=== PATIENT | male | born 1930 | race Caucasian/White ===

== ENCOUNTER 2016-08-06 04:49 | Emergency (ER) | payer MEDICARE ==
[2016-08-06] MEDS ORDERED: methylPREDNISolone SOD SUCC* 125 MG 2 ML VIAL IV ONE (05:11)
[2016-08-06] MEDS ORDERED: Albuterol/Ipratropium NEB.SOL* Albuterol 2.5 MG/Ipratropium 0.5 MG 3 ML INH ONE ×2 (05:17→06:13)
[2016-08-06] MEDS ORDERED: Albuterol/Ipratropium NEB.SOL* Albuterol 2.5 MG/Ipratropium 0.5 MG 3 ML ONE (05:18)
[2016-08-06 05:31] LABS: Hematocrit 38 % (42-52); Hemoglobin 12.6 g/dl (14.0-18.0); Mean Corpuscular HGB Conc 33 g/dl (31-36); Mean Corpuscular Hemoglobin 30 pg (27-31); Mean Corpuscular Volume 90 fL (80-94); Mean Platelet Volume 8 um3 (7.4-10.4); Red Blood Count 4.25 10^6/ul (4.0-5.4); Red Cell Distribution Width 13 % (10.5-15); White Blood Count 5.9 10^3/ul (3.5-10.8)
[2016-08-06 05:44] LABS: Albumin 3.9 g/dL (3.2-5.2); BUN/Creatinine Ratio 12.9 (8-20); Calcium 9.1 mg/dL (8.6-10.3); EGFR African American 66.5 (>60); EGFR Non-African American 51.7 (>60); Globulin 2.7 g/dL (2-4); Potassium 4.1 mmol/L (3.5-5.0); Total Bilirubin 0.6 mg/dL (0.2-1.0); Total Protein 6.6 g/dL (6.4-8.9)
[2016-08-06] MEDS ORDERED: Albuterol 2.5 MG/3 ML NEB.SOL* (0.083%) INH SCH (06:00)
[2016-08-06 06:51] VITALS: BP 91/39
--- NOTE | 2016-08-06 07:51 | RAD ---
INDICATION: Shortness of breath. COMPARISON: Similar chest x-ray dated August 17, 2015 TECHNIQUE: Single AP portable view of the chest was obtained. FINDINGS: Image quality is compromised due to the relative inferiority of a portable chest x-ray. Again seen is a left upper chest cardiac pacemaker with 2 leads overlying the heart. The heart and mediastinum exhibit normal size and contour. There is coarse calcification overlying the arch of the aorta. The lungs are grossly clear. There is no evidence of a large pleural effusion. Visualized bones are normal for the patient's age. IMPRESSION: No radiographic evidence for acute cardiopulmonary abnormality on this portable chest x-ray.
--- NOTE | 2016-08-25 20:13 | ED ---
Minesh Goldberg Matthew, scribed for Ulices Khan MD on 08/06/16 at 0508 . Shortness of Breath - HPI Summary HPI Summary: An 86 y/o male presents to the ED with SOB since yesterday evening. Associated symptoms include dry cough, rhinorrhea, and throat pain w/ coughing. The patient denies hemoptysis, fever, diaphoresis, and chills. The patient is not on home oxygen. He did on nebulizer treatment last night, which did not alleviate his symptoms. No Hx of smoking. The patient's niece is currently ill. - History of Current Complaint Chief Complaint: EDShortnessOfBreath Time Seen by Provider: 08/06/16 04:59 Hx Obtained From: Patient Onset/Duration: Gradual Onset, Lasting Hours, Still Present Timing: Constant Current Severity: Moderate Dyspnea At: Rest Associated Signs & Symptoms: Cough (Nonproductive) - Allergy/Home Medications Allergies/Adverse Reactions: Allergies Allergy/AdvReac Type Severity Reaction Status Date / Time No Known Allergies Allergy Verified 08/17/15 18:41 Home Medications: Home Medications Ferrous Sulfate TAB* 325 mg PO DAILY 08/06/16 [History Confirmed 08/06/16] Lactobacillus Reuteri [Pedia-Lax Probiotic Yums] 2 chw PO TID PRN 08/06/16 [ History Confirmed 08/06/16] Mometasone 220 MCG MDI * [Asmanex 220 MCG MDI *] 2 puff INH BID 08/06/16 [ History Confirmed 08/06/16] Nitroglycerin TAB 0.4 MG* 0.4 mg SL Q5M PRN 08/06/16 [History Confirmed 08/06/16 ] Nystatin SUSPENSION* [Nystatin*] 100,000 unit MT TID 08/06/16 [History Confirmed 08/06/16] Polyethylene Glycol 3350 BTL* [Miralax] 238 gm PO ONCE 08/06/16 [History Confirmed 08/06/16] PMH/Surg Hx/FS Hx/Imm Hx Endocrine/Hematology History: Denies: Hx Diabetes Cardiovascular History: Reports: Hx Angina, Hx Coronary Artery Disease, Hx Hypercholesterolemia, Hx Hypertension, Hx Myocardial Infarction, Hx Pacemaker/ ICD - 11/2009 A-PACED, Hx Syncope - [place] 2004, Other Cardiovascular Problems/ Disorders - pacemaker Respiratory History: Reports: 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, Other Respiratory Problems/Disorders - EMPHYZEMA Denies: Hx Asthma GI History: Reports: Hx Gastroesophageal Reflux Disease, Hx Irritable Bowel, Other GI Disorders - appendix surgery x 2 Musculoskeletal History: Reports: Hx Arthritis, Hx Back Problems - comes and goes, Other Musculoskeletal History - L arm tendonitis requiring surgeries, bilateral rotator cuff surgeries Sensory History: Reports: Hx Contacts or Glasses - READING Opthamlomology History: Reports: Hx Contacts or Glasses - READING Psychiatric History: Reports: Hx Anxiety - Surgical History Surgery Procedure, Year, and Place: pacemaker 11/2009. forearm tendon repairs bilateral. appy, cholecystectomy. cataract surgery 11/2010 Hx Anesthesia Reactions: No - Immunization History Date of Tetanus Vaccine: Up to date Date of Influenza Vaccine: Fall 2012 Infectious Disease History: No Infectious Disease History: Denies: Traveled Outside the [place] in Last 30 Days - Family History Known Family History: Positive: Hypertension - Social History Alcohol Use: Rare Hx Substance Use: No Substance Use Type: Reports: None Hx Tobacco Use: No Smoking Status (MU): Never Smoked Tobacco Review of Systems Constitutional: Negative Negative: Fever, Chills Eyes: Negative Negative: Erythema ENT: Other - throat pain w/ cough Positive: Nasal Discharge. Negative: Sore Throat Cardiovascular: Negative Negative: Chest Pain Positive: Shortness Of Breath, Cough - dry Gastrointestinal: Negative Negative: Abdominal Pain, Vomiting, Diarrhea, Nausea Genitourinary: Negative Negative: dysuria, hematuria Musculoskeletal: Negative Negative: Myalgia, Edema - pedal Skin: Negative Negative: Rash Neurological: Negative Psychological: Normal All Other Systems Reviewed And Are Negative: Yes Physical Exam Triage Information Reviewed: Yes Vital Signs On Initial Exam: Initial Vitals Temp Pulse Resp BP Pulse Ox 99.4 F 72 24 145/49 96 08/06/16 04:56 08/06/16 04:56 08/06/16 04:56 08/06/16 04:56 08/06/16 04:56 Vital Signs Reviewed: Yes Appearance: Positive: No Pain Distress, Well-Nourished Skin: Positive: Warm, Dry Head/Face: Positive: Other - Normocephalic; Atraumatic Eyes: Positive: Conjunctiva Clear Dental: Negative: Cervical Lymphadenopathy Neck: Positive: Supple, No Lymphadenopathy, Other: - Full ROM; No JVD Respiratory/Lung Sounds: Positive: Decreased Breath Sounds - severely, Other - The patient was coughing incessantly during the exam.. Negative: Rales, Rhonchi , Stridor, Tracheal Deviation, Wheezes Cardiovascular: Positive: RRR, Other - Heart sounds normal; Intact distal pulses ; The pedal pulses are 2+ and symmetric. Radial pulses are 2+ and symmetric. Negative: Murmur Abdomen Description: Positive: Nontender, Soft, Other: - No Rebound. Negative: Distended, Guarding Musculoskeletal: Negative: Edema Left, Edema Right Neurological: Positive: Alert, Oriented to Person Place, Time Psychiatric: Positive: Affect/Mood Appropriate Diagnostics - Vital Signs Vital Signs Temp Pulse Resp BP Pulse Ox 08/06/16 04:56 99.4 F 72 24 145/49 96 - Laboratory Result Diagrams: 08/06/16 05:15 08/06/16 05:15 Lab Statement: Any lab studies that have been ordered have been reviewed, and results considered in the medical decision making process. - Radiology CXR Xray Interpretation: No Acute Changes - NO ACUTE DISEASE Radiology Interpretation Completed By: ED Physician - EKG 05:53 Cardiac Rate: NL - 60 bpm EKG Interpretation: Paced rhythm no change; NO STEMI Course/Dx - Course Assessment/Plan: An 86 y/o male presents to the ED with SOB since yesterday evening. Labs were reviewed. CXR shows no acute disease. EKG shows paced rhythm at 60 bpm. In the ED course, the patient was given 2 DuoNeb treatments, solumedrol, and albuterol. The patient improved while in the ED and sated well while ambulating. The patient will be discharged home and follow-up with his PCP. - Diagnoses Provider Diagnoses: COPD exacerbation Discharge - Discharge Plan Condition: Stable Disposition: HOME Prescriptions: Albuterol 2.5MG/3ML (0.083%)* [Ventolin 2.5 MG/3 ML NEB.LIZET*] 2.5 mg INH Q4H # 30 neb.lizet predniSONE TAB* [Deltasone TAB*] 40 mg PO DAILY #8 tab Patient Education Materials: COPD (Chronic Obstructive Pulmonary Disease) (ED) Referrals: [facility] [Outside] Additional Instructions: Please follow-up with your primary care physician in 2 days. Return to the emergency department for changing or worsening symptoms The documentation as recorded by the Minesh covington Matthew accurately reflects the service I personally performed and the decisions made by me, Ulices Khan MD.
== END 2016-08-06 06:58 | disposition home or self-care (01) ==
LOC: ED 04:49
DX: J44.1 Chronic obstructive pulmonary disease with (acute) exacerbation (principal); R06.02 Shortness of breath; R05 Cough; J02.9 Acute pharyngitis, unspecified
CPT/HCPCS: 36415; 71010; 80053; 83605; 85025; 93005; 94640; 94760; 96374; 99282; A9270-GY; J2930

== ENCOUNTER 2017-11-07 02:41 | Emergency (ER) | payer MEDICARE ==
[2017-11-07] MEDS ORDERED: Aspirin 81 mg CHEW TAB* 81 MG TAB.CHEW ONE (03:09)
[2017-11-07] MEDS ORDERED: Ketorolac INJ* 30 MG/ML 1 ML VIAL ONE (03:09)
[2017-11-07 03:50] LABS: INR 0.89 (0.77-1.02)
[2017-11-07 03:52] LABS: ABS Basophils 0 10^3/ul (0-0.2); ABS Eosinophils 0.3 10^3/ul (0-0.6); ABS Lymphocytes 1.5 10^3/ul (1.0-4.8); ABS Monocytes 0.6 10^3/ul (0-0.8); ABS Neutrophils 2.7 10^3/ul (1.5-7.7); ABS Nucleated RBC 0 10^3/ul; Eosinophil % 5.1 % (0-6); Hematocrit 33 % (42-52); Hemoglobin 10.9 g/dl (14.0-18.0); Lymphocyte % 30.6 % (25-47); Mean Corpuscular HGB Conc 33 g/dl (31-36); Mean Corpuscular Hemoglobin 30 pg (27-31); Mean Corpuscular Volume 91 fL (80-94); Mean Platelet Volume 7.9 um3 (7.4-10.4); Nucleated Red Blood Cells % 0; Platelet Count 139 10^3/ul (150-450); Red Blood Count 3.63 10^6/ul (4.0-5.4); Red Cell Distribution Width 14 % (10.5-15); White Blood Count 5.1 10^3/ul (3.5-10.8)
[2017-11-07 04:03] LABS: EGFR Non-African American 56.5 (>60)
[2017-11-07 05:06] VITALS: BP 168/78
--- NOTE | 2017-11-07 05:14 | ED ---
Ronan Goldberg Nilda, scribed for Dawson Zapata MD on 11/07/17 at 0422 . HPI Chest Pain - HPI Summary HPI Summary: This patient is an 87 year old M presenting to [facility] accompanied by family with a chief complaint of constant acute severe L-sided CP that woke him from sleep an hour ago. Pt rates pain 8/10 in severity. Symptoms aggravated by palpation, movement, and deep breaths. Symptoms alleviated by nothing including NTG taken NURSE CLINICAL. Patient reports he fell a couple days ago, though son states pt was caught during that fall and pt never hit the ground. PMHx includes CO years ago. Pt has pacemaker. - History of Current Complaint Chief Complaint: EDChestPainROMI Time Seen by Provider: 11/07/17 02:44 Hx Obtained From: Patient, Family/Disability Advocate - son Onset/Duration: Started Hours Ago, Still Present Timing: Constant Initial Severity: Severe Current Severity: Severe Pain Intensity: 8 Pain Scale Used: 0-10 Numeric Chest Pain Location: Left Anterior Chest Pain Radiates: No Aggravating Factor(s): Movement, Deep Breaths, Other: - palpation Alleviating Factor(s): Nothing Associated Signs and Symptoms: Positive: Other: - fall (a few days ago but was caught) - Additional Pertinent History Primary Care Physician: [id number] - Allergy/Home Medications Allergies/Adverse Reactions: Allergies Allergy/AdvReac Type Severity Reaction Status Date / Time No Known Allergies Allergy Verified 08/17/15 18:41 PMH/Surg Hx/FS Hx/Imm Hx Endocrine/Hematology History: Denies: Hx Diabetes Cardiovascular History: Reports: Hx Angina, Hx Coronary Artery Disease, Hx Hypercholesterolemia, Hx Hypertension, Hx Myocardial Infarction, Hx Pacemaker/ ICD, Hx Syncope - [place] 2004, Other Cardiovascular Problems/Disorders - pacemaker Respiratory History: Reports: Hx Asthma, Hx Chronic Obstructive Pulmonary Disease (COPD), Other Respiratory Problems/Disorders - EMPHYZEMA GI History: Reports: Hx Gastroesophageal Reflux Disease, Hx Irritable Bowel, Other GI Disorders - appendix surgery x 2 Musculoskeletal History: Reports: Hx Arthritis, Hx Back Problems - comes and goes, Other Musculoskeletal History - L arm tendonitis requiring surgeries, bilateral rotator cuff surgeries Sensory History: Reports: Hx Contacts or Glasses - READING Opthamlomology History: Reports: Hx Contacts or Glasses - READING Psychiatric History: Reports: Hx Anxiety - Surgical History Surgery Procedure, Year, and Place: pacemaker 11/2009. forearm tendon repairs bilateral. appy, cholecystectomy. cataract surgery 11/2010 Hx Anesthesia Reactions: No - Immunization History Date of Tetanus Vaccine: Up to date Date of Influenza Vaccine: Fall 2012 Infectious Disease History: No Infectious Disease History: Denies: Traveled Outside the [place] in Last 30 Days - Family History Known Family History: Positive: Hypertension - Social History Occupation: Retired Lives: With Family Alcohol Use: Rare Hx Substance Use: No Substance Use Type: Reports: None Hx Tobacco Use: No Smoking Status (MU): Never Smoked Tobacco Review of Systems Positive: Other - fall a couple days ago but was caught. Negative: Fever Positive: Chest Pain All Other Systems Reviewed And Are Negative: Yes Physical Exam - Summary Physical Exam Summary: Appearance: Well appearing, no pain distress Skin: warm, dry, reflects adequate perfusion. No rash. Abrasion on head. Head/face: normal Eyes: EOMI, LENORE ENT: normal Neck: supple, non-tender Respiratory: Diminished breath sounds, No rales or rhonchi. Cardiovascular: RRR, pulses symmetrical Chest: Pacemaker in chest. Tender in chest, Area ecchymosis under left breast with tenderness in the 10-11 rib area. Abdomen: non-tender, soft Bowel Sounds: present Musculoskeletal: strength/ROM intact, Kyphosis of his back. Neuro: normal, sensory motor intact, A&Ox3 Triage Information Reviewed: Yes Vital Signs On Initial Exam: Initial Vitals Pulse Resp BP Pulse Ox 60 19 165/74 98 11/07/17 02:02 11/07/17 02:02 11/07/17 02:02 11/07/17 02:02 Vital Signs Reviewed: Yes Diagnostics - Vital Signs Vital Signs Temp Pulse Resp BP Pulse Ox 11/07/17 04:02 60 16 161/69 96 11/07/17 04:00 60 16 96 11/07/17 03:32 60 14 153/73 97 11/07/17 03:00 60 26 97 11/07/17 02:58 60 19 97 11/07/17 02:42 97.9 F 60 24 161/62 99 11/07/17 02:02 60 19 165/74 98 - Laboratory Lab Results: Lab Results 11/07/17 11/07/17 11/07/17 Range/Units 03:05 03:05 03:05 WBC 5.1 (3.5-10.8) 10^3/ul RBC 3.63 L (4.0-5.4) 10^6/ul Hgb 10.9 L (14.0-18.0) g/dl Hct 33 L (42-52) % MCV 91 (80-94) fL MCH 30 (27-31) pg MCHC 33 (31-36) g/dl RDW 14 (10.5-15) % Plt Count 139 L (150-450) 10^3/ul MPV 7.9 (7.4-10.4) um3 Neut % (Auto) 52.5 (38-83) % Lymph % (Auto) 30.6 (25-47) % [place] % (Auto) 10.9 H (0-7) % Eos % (Auto) 5.1 (0-6) % Baso % (Auto) 0.9 (0-2) % Absolute Neuts (auto) 2.7 (1.5-7.7) 10^3/ul Absolute Lymphs (auto) 1.5 (1.0-4.8) 10^3/ul Absolute Monos (auto) 0.6 (0-0.8) 10^3/ul Absolute Eos (auto) 0.3 (0-0.6) 10^3/ul Absolute Basos (auto) 0 (0-0.2) 10^3/ul Absolute Nucleated RBC 0 10^3/ul Nucleated RBC % 0 INR (Anticoag Therapy) 0.89 (0.77-1.02) APTT 28.9 (26.0-36.3) seconds Sodium 141 (139-145) mmol/L Potassium 4.5 (3.5-5.0) mmol/L Chloride 110 (101-111) mmol/L Carbon Dioxide 24 (22-32) mmol/L Anion Gap 7 (2-11) mmol/L BUN 21 (6-24) mg/dL Creatinine 1.22 H (0.67-1.17) mg/dL Est GFR ( Amer) 72.6 (>60) Est GFR (Non-Af Amer) 56.5 (>60) BUN/Creatinine Ratio 17.2 (8-20) Glucose 99 (70-100) mg/dL Calcium 8.6 (8.6-10.3) mg/dL Total Bilirubin 0.40 (0.2-1.0) mg/dL AST 19 (13-39) U/L ALT 14 (7-52) U/L Alkaline Phosphatase 36 (34-104) U/L Troponin I 0.01 (<0.04) ng/mL B-Natriuretic Peptide ( - 100) pg/mL Total Protein 6.0 L (6.4-8.9) g/dL Albumin 3.5 (3.2-5.2) g/dL Globulin 2.5 (2-4) g/dL Albumin/Globulin Ratio 1.4 (1-3) Lipase 22 (11.0-82.0) U/L //18 Range/Units 03:05 WBC (3.5-10.8) 10^3/ul RBC (4.0-5.4) 10^6/ul Hgb (14.0-18.0) g/dl Hct (42-52) % MCV (80-94) fL MCH (27-31) pg MCHC (31-36) g/dl RDW (10.5-15) % Plt Count (150-450) 10^3/ul MPV (7.4-10.4) um3 Neut % (Auto) (38-83) % Lymph % (Auto) (25-47) % [place] % (Auto) (0-7) % Eos % (Auto) (0-6) % Baso % (Auto) (0-2) % Absolute Neuts (auto) (1.5-7.7) 10^3/ul Absolute Lymphs (auto) (1.0-4.8) 10^3/ul Absolute Monos (auto) (0-0.8) 10^3/ul Absolute Eos (auto) (0-0.6) 10^3/ul Absolute Basos (auto) (0-0.2) 10^3/ul Absolute Nucleated RBC 10^3/ul Nucleated RBC % INR (Anticoag Therapy) (0.77-1.02) APTT (26.0-36.3) seconds Sodium (139-145) mmol/L Potassium (3.5-5.0) mmol/L Chloride (101-111) mmol/L Carbon Dioxide (22-32) mmol/L Anion Gap (2-11) mmol/L BUN (6-24) mg/dL Creatinine (0.67-1.17) mg/dL Est GFR ( Amer) (>60) Est GFR (Non-Af Amer) (>60) BUN/Creatinine Ratio (8-20) Glucose (70-100) mg/dL Calcium (8.6-10.3) mg/dL Total Bilirubin (0.2-1.0) mg/dL AST (13-39) U/L ALT (7-52) U/L Alkaline Phosphatase (34-104) U/L Troponin I (<0.04) ng/mL B-Natriuretic Peptide 368 H ( - 100) pg/mL Total Protein (6.4-8.9) g/dL Albumin (3.2-5.2) g/dL Globulin (2-4) g/dL Albumin/Globulin Ratio (1-3) Lipase (11.0-82.0) U/L Result Diagrams: 11/07/17 03:05 11/07/17 03:05 Lab Statement: Any lab studies that have been ordered have been reviewed, and results considered in the medical decision making process. - Radiology CXR Radiology Interpretation Completed By: ED Physician - no acute findings. - EKG 0245 Cardiac Rate: Other Rate - [address] Segment: Non-Specific EKG Interpretation: AV paced, left axis Re-Evaluation - Re-Evaluation First Eval Re-Evaluation Time: 04:41 Change: Improved Comment: Pain is gone with Toradol Chest Pain Course/Dx - Course Course Of Treatment: Patient with minor fall 2 days ago developed point tenderness in his left chest wall. Nitroglycerin did not help the pain. Toradol to get away completely. No x-ray evidence for rib fracture. Vitals are stable troponin is nonelevated. Discharged in good condition to follow closely with his primary care physician. Borderline creatinine and so he will use NSAID on a very limited basis. - Chest Pain Differential Diagnosis/HQI/PQRI: Acute CO, ACS, CHF, Chest Wall, GI Disease, Lower Respiratory Infection, Other: - Chest wall/contusion - Diagnoses Provider Diagnoses: Fall, Chest wall pain Discharge - Sign-Out/Discharge Documenting (check all that apply): Discharge/Admit/Transfer - Discharge Plan Condition: Improved Disposition: HOME Patient Education Materials: Chest Wall Pain (ED) Referrals: No Primary Care Phys,NOPCP [Primary Care Provider] - Additional Instructions: Ice, deep breathing exercises as discussed. Tylenol may be taken 3 times a day. Take ibuprofen 200 mg infrequently as discussed. This may be taken up to 2 times per day. [facility] to schedule follow-up. - Billing Disposition and Condition Condition: IMPROVED Disposition: HOME The documentation as recorded by the Ronan covington Nilda accurately reflects the service I personally performed and the decisions made by me, Dawson Zapata MD.
--- NOTE | 2017-11-07 08:09 | RAD ---
INDICATION: Chest pain and shortness of breath COMPARISON: Chest x-ray dated August 20, 2016 TECHNIQUE: Single AP portable view of the chest was obtained. FINDINGS: Image quality is compromised due to the relative inferiority of a portable chest x-ray. There is a left upper chest cardiac pacemaker with 2 leads overlying the heart. The heart and mediastinum exhibit normal size and contour. The lungs are grossly clear. There is no evidence of a large pleural effusion. Visualized bones are normal for the patient's age. IMPRESSION: No radiographic evidence for acute cardiopulmonary abnormality on this portable chest x-ray.
== END 2017-11-07 05:07 | disposition home or self-care (01) ==
LOC: ED 02:41
DX: R07.89 Other chest pain (principal); I25.2 Old myocardial infarction; Z95.0 Presence of cardiac pacemaker; Z91.81 History of falling
CPT/HCPCS: 36415; 71045; 80053; 83690; 83880; 84484; 85025; 85610; 85730; 93005; 96374; 99282; A9270-GY; J1885

== ENCOUNTER 2019-07-18 17:02 | Inpatient (IN) | payer MEDICARE ==
[2019-07-18 17:45] LABS: ABS Eosinophils 0.2 10^3/ul (0-0.6); ABS Lymphocytes 0.7 10^3/ul (1.0-4.8); ABS Monocytes 0.6 10^3/ul (0-0.8); ABS Neutrophils 3.6 10^3/ul (1.5-7.7); Eosinophil % 4.8 %; Hematocrit 34 % (42-52); Hemoglobin 11.6 g/dL (14.0-18.0); Lymphocyte % 13.7 %; Mean Corpuscular HGB Conc 34 g/dL (31-36); Mean Corpuscular Hemoglobin 31 pg (27-31); Mean Corpuscular Volume 91 fL (80-94); Mean Platelet Volume 7.6 fL (7.4-10.4); Nucleated Red Blood Cells % 0.1; Platelet Count 125 10^3/uL (150-450); Red Blood Count 3.77 10^6 /uL (4.18-5.48); Red Cell Distribution Width 13 % (10-15); White Blood Count 5.2 10^3/uL (3.5-10.8)
[2019-07-18 18:03] LABS: Albumin 3.8 g/dL (3.2-5.2); Albumin/Globulin Ratio 1.5 (1-3); BUN/Creatinine Ratio 16.3 (8-20); C Reactive Protein 75.42 mg/L (<8.01); Calcium 8.7 mg/dL (8.6-10.3); EGFR African American 47.7 (>60); EGFR Non-African American 39.4 (>60); Globulin 2.6 g/dL (2-4); Magnesium 1.9 mg/dL (1.9-2.7); Total Bilirubin 0.8 mg/dL (0.2-1.0); Total Protein 6.4 g/dL (6.4-8.9)
--- NOTE | 2019-07-18 18:18 | ED ---
Back Pain - HPI Summary HPI Summary: Per family, patient complains of lower back pain status post 2 mechanical falls in the past 2 days. Family also states patient has increased tremor and right hand. Family states patient has baseline gait instability, and refuses to wait for someone to help him, and often falls. Fever noted in triage by forehead sweep. Patient and family deny any symptoms of infection. Oral temperature in exam room 99.8. Patient has ambulated since fall. Denies any other pain, injury or symptoms. Medical history COPD, HTN, HDL. - History of Current Complaint Chief Complaint: EDFall Stated Complaint: MULTIPLE FALLS- BACK PAIN PER SON Time Seen by Provider: 07/18/19 17:11 Hx Obtained From: Patient, Family/Seed Specialist Onset/Duration: Gradual Onset, Lasting Days Onset/Duration: Started Days Ago Timing: Constant Severity Initially: Moderate Severity Currently: Moderate Pain Intensity: 7 Pain Scale Used: 0-10 Numeric Character: Dull, Aching, Throbbing Aggravating Symptom(s): Movement, Bending, Walking Alleviating Symptom(s): Position Associated Signs And Symptoms: Positive: Negative - Allergies/Home Medications Allergies/Adverse Reactions: Allergies Allergy/AdvReac Type Severity Reaction Status Date / Time No Known Allergies Allergy Verified 07/18/19 17:08 PMH/Surg Hx/FS Hx/Imm Hx Endocrine/Hematology History: Denies: Hx Diabetes Cardiovascular History: Reports: Hx Angina, Hx Coronary Artery Disease, Hx Hypercholesterolemia, Hx Hypertension, Hx Myocardial Infarction, Hx Pacemaker/ ICD, Hx Syncope - [place] 2004, Other Cardiovascular Problems/Disorders - pacemaker Respiratory History: Reports: Hx Asthma, Hx Chronic Obstructive Pulmonary Disease (COPD), Other Respiratory Problems/Disorders - EMPHYZEMA GI History: Reports: Hx Gastroesophageal Reflux Disease, Hx Irritable Bowel, Other GI Disorders - appendix surgery x 2 Musculoskeletal History: Reports: Hx Arthritis, Hx Back Problems - comes and goes, Other Musculoskeletal History - L arm tendonitis requiring surgeries, bilateral rotator cuff surgeries Sensory History: Reports: Hx Contacts or Glasses - READING Opthamlomology History: Reports: Hx Contacts or Glasses - READING Psychiatric History: Reports: Hx Anxiety - Surgical History Surgery Procedure, Year, and Place: pacemaker 11/2009. forearm tendon repairs bilateral. appy, cholecystectomy. cataract surgery 11/2010 Hx Anesthesia Reactions: No - Immunization History Date of Tetanus Vaccine: Up to date Date of Influenza Vaccine: Fall 2012 Infectious Disease History: No Infectious Disease History: Denies: Traveled Outside the [place] in Last 30 Days - Family History Known Family History: Positive: Hypertension - Social History Alcohol Use: Rare Hx Substance Use: No Substance Use Type: Reports: None Hx Tobacco Use: No Smoking Status (MU): Never Smoked Tobacco Review of Systems Positive: Fever Eyes: Negative ENT: Negative Cardiovascular: Negative Respiratory: Negative Gastrointestinal: Negative Genitourinary: Negative Musculoskeletal: Other Skin: Negative Neurological: Other Psychological: Normal All Other Systems Reviewed And Are Negative: Yes Physical Exam - Summary Physical Exam Summary: No evidence of trauma to mouth, face, head. Full range of motion of neck and jaw. Chest and abdomen nontender to palpation. Patient able to tolerate passive flexion and extension of bilateral upper extremities with exception of right shoulder. PMS intact distally bilaterally. Patient winces with abduction of right shoulder. No pain with palpation of C-spine. Some degree of bony point tenderness over the lower thoracic spine and lumbar spine. No ecchymosis, erythema, deformity, swelling noted to chest, abdomen or pelvis. Patient able to flex and extend bilateral lower extremities with some pain in lower back. No ecchymosis, erythema, deformity, swelling noted to bilateral lower extremities. PMS intact distally bilaterally.. Triage Information Reviewed: Yes Vital Signs On Initial Exam: Initial Vitals Temp Pulse Resp BP Pulse Ox 101.4 F 67 18 169/71 97 07/18/19 17:04 07/18/19 17:04 07/18/19 17:04 07/18/19 17:04 07/18/19 17:04 Vital Signs Reviewed: Yes Appearance: Positive: Well-Appearing Skin: Positive: Warm Head/Face: Positive: Normal Head/Face Inspection Eyes: Positive: Normal Neck: Positive: Supple Respiratory/Lung Sounds: Positive: Clear to Auscultation Cardiovascular: Positive: Normal Abdomen Description: Positive: Nontender Musculoskeletal: Positive: Normal Neurological: Positive: Normal Psychiatric: Positive: Normal AVPU Assessment: Alert - [place] Coma Scale Best Eye Response: 4 - Spontaneous Best Motor Response: 6 - Obeys Commands Best Verbal Response: 5 - Oriented Coma Scale Total: 15 Procedures - Sedation Patient Received Moderate/Deep Sedation with Procedure: No Diagnostics - Vital Signs Vital Signs Temp Pulse Resp BP Pulse Ox 07/18/19 17:39 99.8 F 07/18/19 17:04 101.4 F 67 18 169/71 97 - Laboratory Lab Results: Lab Results 07/18/19 07/18/19 07/18/19 Range/Units 17:33 17:33 17:33 WBC 5.2 (3.5-10.8) 10^3/uL RBC 3.77 L (4.18-5.48) 10^6 /uL Hgb 11.6 L (14.0-18.0) g/dL Hct 34 L (42-52) % MCV 91 (80-94) fL MCH 31 (27-31) pg MCHC 34 (31-36) g/dL RDW 13 (10-15) % Plt Count 125 L (150-450) 10^3/uL MPV 7.6 (7.4-10.4) fL Neut % (Auto) 69.9 % Lymph % (Auto) 13.7 % Coffee % (Auto) 10.8 % Eos % (Auto) 4.8 % Baso % (Auto) 0.8 % Absolute Neuts (auto) 3.6 (1.5-7.7) 10^3/ul Absolute Lymphs (auto) 0.7 L (1.0-4.8) 10^3/ul Absolute Monos (auto) 0.6 (0-0.8) 10^3/ul Absolute Eos (auto) 0.2 (0-0.6) 10^3/ul Absolute Basos (auto) 0.0 (0-0.2) 10^3/ul Absolute Nucleated RBC 0.0 10^3/ul Nucleated RBC % 0.1 Sodium 139 (135-145) mmol/L Potassium 4.0 (3.5-5.0) mmol/L Chloride 106 (101-111) mmol/L Carbon Dioxide 25 (22-32) mmol/L Anion Gap 8 (2-11) mmol/L BUN 27 H (6-24) mg/dL Creatinine 1.66 H (0.67-1.17) mg/dL Est GFR ( Amer) 47.7 (>60) Est GFR (Non-Af Amer) 39.4 (>60) BUN/Creatinine Ratio 16.3 (8-20) Glucose 119 H (70-100) mg/dL Lactic Acid 1.4 (0.5-2.0) mmol/L Calcium 8.7 (8.6-10.3) mg/dL Magnesium 1.9 (1.9-2.7) mg/dL Total Bilirubin 0.80 (0.2-1.0) mg/dL AST 18 (13-39) U/L ALT 14 (7-52) U/L Alkaline Phosphatase 50 (34-104) U/L C-Reactive Protein 75.42 H (<8.01) mg/L Total Protein 6.4 (6.4-8.9) g/dL Albumin 3.8 (3.2-5.2) g/dL Globulin 2.6 (2-4) g/dL Albumin/Globulin Ratio 1.5 (1-3) TSH Pending Result Diagrams: 07/20/19 09:21 07/20/19 09:21 Lab Statement: Any lab studies that have been ordered have been reviewed, and results considered in the medical decision making process. Back Pain Course/Dx - Course Course Of Treatment: Per family, patient complains of lower back pain status post 2 mechanical falls in the past 2 days. Family also states patient has increased tremor and right hand. Family states patient has baseline gait instability, and refuses to wait for someone to help him, and often falls. Fever noted in triage by forehead sweep. Patient and family deny any symptoms of infection. Oral temperature in exam room 99.8. Patient has ambulated since fall. Denies any other pain, injury or symptoms. Medical history COPD, HTN, HDL. Temperature 101.4 in triage. No antipyretics on board. All repeat temps within normal limits. Vital signs otherwise within normal limits. Creatinine 1.66. History of elevated creatinine. Platelets 125. History of low platelet count. CRP 75. Labs otherwise unremarkable. Chest x-ray possibly positive for right mid infiltrate. X-ray right shoulder negative. CT thoracic spine has questionable subtle mild compression deformity of the superior endplate of T3. CT of L-spine as suspected acute mild compression deformity of the inferior endplate of L1. Patient normally ambulatory with a steady gait, but can't perform ADLs. Patient here in the ED unable to leave the bed due to pain. Patient urinated in bed. Providing patient with by mouth opiates for pain control may exacerbate baseline gait instability. Admitted to the hospitalist for pain control and inability to perform ADLs subsequent to new onset back pain. - Diagnoses Provider Diagnoses: Pneumonia, Compression deformity of vertebra, Unable to ambulate Discharge ED - Sign-Out/Discharge Documenting (check all that apply): Patient Departure - Discharge Plan Condition: Good Disposition: ADMITTED TO [facility] - Billing Disposition and Condition Condition: GOOD Disposition: Admitted to [facility] - Attestation Statements Provider Attestation: I was available for consult. This patient was seen by the CHARLENE. The patient was not presented to, seen by, or examined by me. Christoph Batres MD
[2019-07-18 18:33] LABS: TSH (Thyroid Stimulating Horm) 0.35 mcIU/mL (0.34-5.60)
[2019-07-18] MEDS: Lidocaine PATCH 5%* 1 PATCH TRANSDERM SCH (18:42)
[2019-07-18] MEDS ORDERED: NS 0.9% 1000 ML** 1,000 ML IV ONE (18:50)
[2019-07-18] MEDS ORDERED: Acetaminophen TAB* 325 MG PO ONE (19:15)
[2019-07-18] MEDS ORDERED: DOXYcycline CAP(*) 100 MG PO ONE (19:16)
[2019-07-18 19:22] LABS: Influenza A Molecular NEGATIVE (Negative); Influenza B Molecular NEGATIVE (Negative)
[2019-07-18] MEDS: cefTRIAXone(*) 1 GM in NS 0.9% 50 ML* 50 ML IVPB SCH (23:36)
[2019-07-18] MEDS: Lidocaine Patch REMOVE* 1 NOTE MISC SCH (23:54)
--- NOTE | 2019-07-19 05:36 | ADMNOTE ---
Subjective Interval History: This is my H/P 89 yo male with history of COPD and HTN was brought by family for back pain. He had 2 mechanical falls at home recently. Pt has slow unsteady gait and refuses to let others help him get up. Still, his Family said he doesnt normally fall so frequently and lately he just seems more fatigued. He was complaining of difficulty swallowing and a dry cough. At home, his checked his temperature which was 100. In the ED, pt had a fever of 101, vitals have been stable otherwise. For his back pain, he had scans done which showed questionable compression fractures. His CXR showed possible right lung PNA. He tested neg for the flu. Bedside nurse brought up some concerns with his swallowing. Family History: Unchanged from Admission Social History: Unchanged from Admission Past Medical History: Unchanged from Admission Review of Systems - Measurements Intake and Output: Intake and Output Last 24 Hours 07/16/19 07/17/19 07/18/19 07/19/19 06:59 06:59 06:59 06:59 Intake Total 1000 Output Total 75 Balance 925 Weight 130 lb 12.8 oz Intake: IV Fluids 1000 Oral 0 Output: Urine 75 Other: Estimated Void Small - Review of Systems Constitutional Symptoms: Positive: Weakness, Fatigue, Fever Negative: Weight Gain, Weight Loss, Night Sweats, Unexplained Falls, Other Dermatology: Negative: Normal, Rash, Skin Lesions, Cancer, Skin Lumps, Other HEENT: Negative: Normal, Change in Hearing, Vertigo, Dental Problems, Tinnitus, Sinus Problem, Other Eyes: Negative: Normal, Change in Vision, Double Vision, Eye Pain, Glaucoma, Cataract, Contacts or Glasses, Other Thyroid: Negative: Normal, Goiter, Thyroid Nodule, Cold Intolerance, Heat Intolerance , Sweatiness, Tremor, Frequent Defecation, Constipation, Palpitations, Primary Hypothyroidism, Primary Hyperthyroidism, Weight Loss, Weight Gain, Change in Skin/Hair, Change in Menstruation, Radiation Exposure, Other Pulmonary: Positive: Cough Negative: Normal, Sputum, Hemoptysis, Wheezing, Respiratory Distress, Shortness of Breath, COPD, Asthma, Exercise Intolerance, Home Oxygen, Other Cardiology: Negative: Normal, Chest Pain, Shortness of Breath, Palpitations, Swelling of Ankles, Peripheral Vascular Dis, Edema, Faintness, Syncope, Claudication, Proximal NocturnalDyspnea, Orthopnoea, Other Gastroenterology: Negative: Normal, Abdominal Pain, Nausea, Vomiting, Anorexia, Indigestion, Difficulty Swallowing, Heartburn, Constipation, Diarrhea, Blood in Stools, Change in Bowel Habits, Haematemesis, Melena, Other Musculoskeletal: Positive: Low Back Pain Negative: Joint Pain, Joint Stiffness, Arthritis, Osteoporosis, Sciatica, Joint Deformities, Kyphoscoliosis, Other Hematologic/Lymphatic: Negative: Anemia, Easy Bruising, Hx Leukemia, Hx Lymphoma, Use of Anticoagulant, Use of Antiplatelet Drugs, Other Neurology: Negative: Normal, Headache, Migraines, Change in Vision, Diplopia, Dizziness , Change in Balancing, Change in Coordination, Change in Memory, Change in Speech, Change in Sphincter Function, Change in Walking, Numbness\Paresthesiae, Unexplained Weakness, Hx of Stroke\TIA, Hx of Seizures, Other Objective Active Medications: Ceftriaxone Sodium 1 gm/ (Sodium Chloride) 50 mls @ 100 mls/hr IVPB Q24H [facility] Last Admin: 07/18/19 23:36 Dose: 100 mls/hr Lidocaine (Lidoderm 5% Patch*) 1 patch TRANSDERM DAILY [facility] Last Admin: 07/18/19 18:42 Dose: 1 patch Pharmacy Profile Note (Lidocaine Patch Remove*) 1 note N/A 2100 [facility] Last Admin: 07/18/19 23:54 Dose: Not Given Ambulatory Orders Albuterol HFA INHALER* [Ventolin HFA Inhaler*] 2 puff INH Q4H PRN 07/18/19 Aspirin 81 mg CHEW TAB* 81 mg PO DAILY 07/18/19 Carbidopa/Levodopa ER 25/100 [Carbidopa-Levo ER 25-100 Tab] 1 tab PO DAILY Ferrous Sulfate TAB* 325 mg PO DAILY 07/18/19 Fluticasone Propionate [Armonair Respiclick] 55 mcg IH DAILY 07/18/19 Nitroglycerin TAB 0.4 MG* 0.4 mg SL Q5M PRN 07/18/19 Omeprazole 20 mg PO DAILY 07/18/19 Vital Signs - 8 hr 07/18/19 07/18/19 07/18/19 21:40 22:04 23:22 Temperature 98.5 F 98.9 F 98 F Pulse Rate 60 59 60 Respiratory 20 20 16 Rate Blood Pressure 131/59 140/57 131/52 (mmHg) O2 Sat by Pulse 96 95 96 Oximetry 07/19/19 02:59 Temperature 98 F Pulse Rate 61 Respiratory 18 Rate Blood Pressure 143/65 (mmHg) O2 Sat by Pulse 96 Oximetry Oxygen Devices in Use Now: None Appearance: NID, speaks slowly which is normal for him Ears/Nose/Mouth/Throat: Mucous Membranes Moist Neck: NL Appearance and Movements; NL JVP, Trachea Midline, No Thyroid Enlargement, Masses Respiratory: Symmetrical Chest Expansion and Respiratory Effort, Clear to Auscultation Cardiovascular: NL Sounds; No Murmurs; No JVD, No Edema Abdominal: NL Sounds; No Tenderness; No Distention Lymphatic: No Cervical Adenopathy Extremities: No Edema Skin: No Rash or Ulcers Neurological: Alert and Oriented x 3, - - general weakness Result Diagrams: 07/18/19 17:33 07/18/19 17:33 Additional Lab and Data: Lab Results 07/18/19 07/18/19 07/18/19 Range/Units 17:33 17:33 17:33 WBC 5.2 (3.5-10.8) 10^3/uL RBC 3.77 L (4.18-5.48) 10^6 /uL Hgb 11.6 L (14.0-18.0) g/dL Hct 34 L (42-52) % MCV 91 (80-94) fL MCH 31 (27-31) pg MCHC 34 (31-36) g/dL RDW 13 (10-15) % Plt Count 125 L (150-450) 10^3/uL MPV 7.6 (7.4-10.4) fL Neut % (Auto) 69.9 % Lymph % (Auto) 13.7 % [place] % (Auto) 10.8 % Eos % (Auto) 4.8 % Baso % (Auto) 0.8 % Absolute Neuts (auto) 3.6 (1.5-7.7) 10^3/ul Absolute Lymphs (auto) 0.7 L (1.0-4.8) 10^3/ul Absolute Monos (auto) 0.6 (0-0.8) 10^3/ul Absolute Eos (auto) 0.2 (0-0.6) 10^3/ul Absolute Basos (auto) 0.0 (0-0.2) 10^3/ul Absolute Nucleated RBC 0.0 10^3/ul Nucleated RBC % 0.1 Sodium 139 (135-145) mmol/L Potassium 4.0 (3.5-5.0) mmol/L Chloride 106 (101-111) mmol/L Carbon Dioxide 25 (22-32) mmol/L Anion Gap 8 (2-11) mmol/L BUN 27 H (6-24) mg/dL Creatinine 1.66 H (0.67-1.17) mg/dL Est GFR ( Amer) 47.7 (>60) Est GFR (Non-Af Amer) 39.4 (>60) BUN/Creatinine Ratio 16.3 (8-20) Glucose 119 H (70-100) mg/dL Lactic Acid 1.4 (0.5-2.0) mmol/L Calcium 8.7 (8.6-10.3) mg/dL Magnesium 1.9 (1.9-2.7) mg/dL Total Bilirubin 0.80 (0.2-1.0) mg/dL AST 18 (13-39) U/L ALT 14 (7-52) U/L Alkaline Phosphatase 50 (34-104) U/L C-Reactive Protein 75.42 H (<8.01) mg/L Total Protein 6.4 (6.4-8.9) g/dL Albumin 3.8 (3.2-5.2) g/dL Globulin 2.6 (2-4) g/dL Albumin/Globulin Ratio 1.5 (1-3) TSH Pending Assess/Plan/Problems-Billing Assessment: - Patient Problems (1) Community acquired bacterial pneumonia Current Visit: Yes Status: Acute Code(s): J15.9 - UNSPECIFIED BACTERIAL PNEUMONIA SNOMED Code(s): 156258290 Comment: presenting with generalized weakness, Upper respiratory symptoms, fever. Cxr showed possible right middle opacity. ceftriaxone and azithromycin blood cx (2) Low back pain Current Visit: Yes Status: Acute Code(s): M54.5 - LOW BACK PAIN SNOMED Code(s): 257116883 Comment: secondary to falls at home CT lumbar is not entirely clear if he has fractures, will get an MRI. In the meantime, he is bedrest. Pt/Ot after MRI is complete tylenol, tramadol, heating pad. (3) Parkinson disease Current Visit: Yes Status: Acute Code(s): G20 - PARKINSON'S DISEASE SNOMED Code(s): 20619508 Comment: family wasnt aware of this diagnosis but he is on carbidopa/levodopa resume home meds (4) COPD (chronic obstructive pulmonary disease) Current Visit: No Status: Acute Code(s): J44.9 - CHRONIC OBSTRUCTIVE PULMONARY DISEASE, UNSPECIFIED SNOMED Code(s): 36352737 Comment: No signs of exacerbation. No wheezing, no increase shortness of breath. Pt will resume all home inhalers. (5) Full code status Current Visit: No Status: Acute Code(s): Z78.9 - OTHER SPECIFIED HEALTH STATUS SNOMED Code(s): 336387390 (6) DVT prophylaxis Current Visit: No Status: Acute Code(s): DRU8643 - SNOMED Code(s): 452717181 Comment: JUSTIN heparin
[2019-07-19] MEDS ORDERED: Nitroglycerin TAB 0.4 MG* 0.4 MG TAB SL PRN (05:48)
[2019-07-19] MEDS ORDERED: Albuterol HFA INHALER* 8 gm MDI INH PRN (05:48)
[2019-07-19] MEDS ORDERED: traMADol TAB* 50 MG PO PRN (05:50)
[2019-07-19 06:31] LABS: Hematocrit 31 % (42-52); Hemoglobin 10.5 g/dL (14.0-18.0); Mean Corpuscular HGB Conc 34 g/dL (31-36); Mean Corpuscular Hemoglobin 31 pg (27-31); Mean Corpuscular Volume 91 fL (80-94); Mean Platelet Volume 8.2 fL (7.4-10.4); Platelet Count 105 10^3/uL (150-450); Red Blood Count 3.41 10^6 /uL (4.18-5.48); Red Cell Distribution Width 13 % (10-15); White Blood Count 4.3 10^3/uL (3.5-10.8)
[2019-07-19 06:47] LABS: BUN/Creatinine Ratio 16.2 (8-20); Calcium 8.2 mg/dL (8.6-10.3); EGFR African American 54.4 (>60); Magnesium 1.8 mg/dL (1.9-2.7); Potassium 3.9 mmol/L (3.5-5.0)
[2019-07-19] MEDS: Azithromycin 500 mg/250 ml NS 500 MG/250 ML BAG IVPB SCH (07:46)
[2019-07-19] MEDS: Heparin VIAL(*) 5000 UNITS/ML VIAL (FIVE THOUSAND) SUBCUT SCH ×3 (07:50→20:52)
[2019-07-19] MEDS ORDERED: Carbidopa/Levodopa ER 25/100 TABLET.ER PO SCH (09:00)
[2019-07-19] MEDS: Pantoprazole TAB * 40 MG TAB PO SCH (10:11)
[2019-07-19] MEDS: Aspirin 81 mg CHEW TAB* 81 MG TAB.CHEW PO SCH (10:11)
[2019-07-19] MEDS: Lidocaine PATCH 5%* 1 PATCH TRANSDERM SCH (10:11)
[2019-07-19] MEDS: Ferrous Sulfate TAB* 325 MG PO SCH (10:12)
[2019-07-19] MEDS: Carbamide Peroxide 6.5% OTIC* 15 ML BTL SCH (10:12)
[2019-07-19] MEDS: FLUTICASONE PROPIONATE 55 MCG IH SCH (10:44)
[2019-07-19] MEDS: NS 0.9% 1000 ML** 1,000 ML IV SCH (14:07)
[2019-07-19] MEDS: Carbidopa/Levodop 25/100 MG TAB(*) PO SCH (16:53)
--- NOTE | 2019-07-19 17:21 | PN ---
Subjective Date of Service: 07/19/19 Interval History: Seen this morning, laying in bed, in NAD. Denies any chills, lightheadedness, CP , SOB, cough, N/V, abdominal pain. Pt is difficult to get answers from, he often defers to his even when asked questions about the way he is feeling. C/o continued back pain with movement, states that he is okay and not in pain when he is laying still. Does not think that anything worsens the pain other than movement. Soon after nursing swallowing evaluation it was reported that the pt c/o feeling as if food was "getting stuck". Upon further reassessment was pointing just below at midline just below the neck for where he feels as if the food is getting "stuck". No emesis or episodes of choking reported from him or his . Family History: Unchanged from Admission Social History: Unchanged from Admission Past Medical History: Unchanged from Admission Objective Active Medications: Albuterol (Ventolin Hfa Inhaler*) 2 puff INH Q4H PRN PRN Reason: SOB/WHEEZING Aspirin (Aspirin 81 Mg Chew Tab*) 81 mg PO DAILY [facility] Last Admin: 07/19/19 10:11 Dose: 81 mg Carbamide Peroxide (Debrox 6.5% Otic*) 1 drop .SEE ORDER DAILY [facility] Last Admin: 07/19/19 10:12 Dose: 1 drop Carbidopa/Levodopa (Sinemet 25/100 Tab(*)) 1 tab PO AC [facility] Last Admin: 07/19/19 16:53 Dose: 1 tab Ferrous Sulfate (Ferrous Sulfate Tab*) 325 mg PO DAILY [facility] Last Admin: 07/19/19 10:12 Dose: 325 mg Heparin Sodium (Porcine) (Heparin Vial(*)) 5,000 units SUBCUT Q8HR [facility] Last Admin: 07/19/19 14:07 Dose: 5,000 units Ceftriaxone Sodium 1 gm/ (Sodium Chloride) 50 mls @ 100 mls/hr IVPB Q24H [facility] Last Admin: 07/18/19 23:36 Dose: 100 mls/hr Azithromycin (Zithromax 500 Mg/250 Ml) 500 mg in 250 mls @ 250 mls/hr IVPB Q24H [facility] Last Admin: 07/19/19 07:46 Dose: 250 mls/hr Sodium Chloride (Ns 0.9% 1000 Ml) 1,000 mls @ 75 mls/hr IV PER RATE [facility] Stop: 07/20/19 02:04 Last Admin: 07/19/19 14:07 Dose: 75 mls/hr Lidocaine (Lidoderm 5% Patch*) 1 patch TRANSDERM DAILY [facility] Last Admin: 07/19/19 10:11 Dose: 1 patch Nitroglycerin (Nitroglycerin Tab 0.4 Mg*) 0.4 mg SL Q5M PRN PRN Reason: ANGINA NOT RELIEVED w REST Non-Formulary Medication (Fluticasone Propionate [Armonair Respiclick]) 55 mcg IH DAILY [facility] Last Admin: 07/19/19 10:44 Dose: Not Given Pantoprazole Sodium (Protonix Tab*) 20 mg PO DAILY [facility] Last Admin: 07/19/19 10:11 Dose: 20 mg Pharmacy Profile Note (Lidocaine Patch Remove*) 1 note N/A 2099 [facility] Last Admin: 07/18/19 23:54 Dose: Not Given Tramadol HCl (Ultram*) 50 mg PO Q8H PRN PRN Reason: PAIN - MODERATE Vital Signs - 8 hr 07/19/19 07/19/19 11:15 15:15 Temperature 98.9 F 99.1 F Pulse Rate 59 59 Respiratory 16 20 Rate Blood Pressure 139/56 152/55 (mmHg) O2 Sat by Pulse 98 99 Oximetry Oxygen Devices in Use Now: None Appearance: Laying in bed, NAD Eyes: No Scleral Icterus, - - PERRL Ears/Nose/Mouth/Throat: Clear Oropharnyx, - - dry mucous membranes Neck: Trachea Midline Respiratory: Symmetrical Chest Expansion and Respiratory Effort, - - Faint inspiratory crackles to LLL, all other lobes clear but diminished. barrel chest appearance Cardiovascular: RRR Abdominal: NL Sounds; No Tenderness; No Distention Extremities: No Edema Neurological: Alert and Oriented x 3 - person, place, and situation Nutrition: Taking PO's Result Diagrams: 07/20/19 09:21 07/20/19 09:21 Additional Lab and Data: Lab Results 07/18/19 07/18/19 07/18/19 Range/Units 17:33 17:33 17:33 WBC 5.2 (3.5-10.8) 10^3/uL RBC 3.77 L (4.18-5.48) 10^6 /uL Hgb 11.6 L (14.0-18.0) g/dL Hct 34 L (42-52) % MCV 91 (80-94) fL MCH 31 (27-31) pg MCHC 34 (31-36) g/dL RDW 13 (10-15) % Plt Count 125 L (150-450) 10^3/uL MPV 7.6 (7.4-10.4) fL Neut % (Auto) 69.9 % Lymph % (Auto) 13.7 % Bureau % (Auto) 10.8 % Eos % (Auto) 4.8 % Baso % (Auto) 0.8 % Absolute Neuts (auto) 3.6 (1.5-7.7) 10^3/ul Absolute Lymphs (auto) 0.7 L (1.0-4.8) 10^3/ul Absolute Monos (auto) 0.6 (0-0.8) 10^3/ul Absolute Eos (auto) 0.2 (0-0.6) 10^3/ul Absolute Basos (auto) 0.0 (0-0.2) 10^3/ul Absolute Nucleated RBC 0.0 10^3/ul Nucleated RBC % 0.1 Sodium 139 (135-145) mmol/L Potassium 4.0 (3.5-5.0) mmol/L Chloride 106 (101-111) mmol/L Carbon Dioxide 25 (22-32) mmol/L Anion Gap 8 (2-11) mmol/L BUN 27 H (6-24) mg/dL Creatinine 1.66 H (0.67-1.17) mg/dL Est GFR ( Amer) 47.7 (>60) Est GFR (Non-Af Amer) 39.4 (>60) BUN/Creatinine Ratio 16.3 (8-20) Glucose 119 H (70-100) mg/dL Lactic Acid 1.4 (0.5-2.0) mmol/L Calcium 8.7 (8.6-10.3) mg/dL Magnesium 1.9 (1.9-2.7) mg/dL Total Bilirubin 0.80 (0.2-1.0) mg/dL AST 18 (13-39) U/L ALT 14 (7-52) U/L Alkaline Phosphatase 50 (34-104) U/L C-Reactive Protein 75.42 H (<8.01) mg/L Total Protein 6.4 (6.4-8.9) g/dL Albumin 3.8 (3.2-5.2) g/dL Globulin 2.6 (2-4) g/dL Albumin/Globulin Ratio 1.5 (1-3) TSH Pending Diagnostic Imaging: Chest XRay impression: cardiomegaly COPD patchy airspace disease of R mid lung CT lumbar spine impression: suspected acute mild compression deformity of the inferior endplate of L1 - can be further assessed with MRI CT thoracic spine impression: questionable mild compression deformity of the superior endplate of T3 - can be further assessed with MRI See reports for other findings Assess/Plan/Problems-Billing Assessment: 89 yo male with COPD, HTN, Parkinson's disease, sick sinus syndrome with pacer insertion in 2009. He presented to the ED on 07/18 after having 2 falls at home, feeling fatigued, difficulty swallowing. He was found to have pneumonia per chest CXRay, possible compression fractures of the lumbar and thoracic spine, and was admitted to the medical unit for management per hospital medicine. - Patient Problems (1) CAP (community acquired pneumonia) Current Visit: Yes Status: Acute Code(s): J18.9 - PNEUMONIA, UNSPECIFIED ORGANISM SNOMED Code(s): 228677280 Comment: Noted per chest XRay, had been having falls at home and feeling fatigued. IV azithromycin and ceftriaxone (2) Back pain Current Visit: Yes Status: Acute Code(s): M54.9 - DORSALGIA, UNSPECIFIED SNOMED Code(s): 135648341 Comment: Possible compression fractures per lumar and thoracic spine CT scans. Significant pain with movement in bed. Unable to do MRI d/t pacer Pain control as needed Need PT eval (3) Dysphagia Current Visit: Yes Status: Acute Code(s): R13.10 - DYSPHAGIA, UNSPECIFIED SNOMED Code(s): 19471226 Comment: C/o feeling food getting "stuck" in his throat/esophagus. Has been happening per 's report on and off for about a year now. Upper GI study did not reveal any significant findings, swallow function test suggested Swallow function test tomorrow Speech therapy will do bedside eval today Continue sinemet. (4) Parkinson disease Current Visit: Yes Status: Acute Code(s): G20 - PARKINSON'S DISEASE SNOMED Code(s): 64203144 Comment: home dosage of carbidope/levadopa not available in house. Continue immediate release sinimet TID Printed information packet given to family (5) COPD (chronic obstructive pulmonary disease) Current Visit: No Status: Acute Code(s): J44.9 - CHRONIC OBSTRUCTIVE PULMONARY DISEASE, UNSPECIFIED SNOMED Code(s): 11918555 Comment: No signs of exacerbation. No wheezing, no increase shortness of breath or cough. Will resume usual medications (6) DVT prophylaxis Current Visit: No Status: Acute Code(s): CWY0960 - SNOMED Code(s): 201967878 Comment: SQ heparin (7) Full code status Current Visit: No Status: Acute Code(s): Z78.9 - OTHER SPECIFIED HEALTH STATUS SNOMED Code(s): 481728458 Status and Disposition: Disposition: Medical floor Condition: Guarded Attending: Suzanne Springer
[2019-07-19] MEDS: Lidocaine Patch REMOVE* 1 NOTE MISC SCH (20:18)
[2019-07-19] MEDS ORDERED: Morphine INJ* 2 MG/ML 1 ML SYRINGE (TWO MG - NEW SYRINGE VERSION) IV ONE (20:30)
[2019-07-19] MEDS: cefTRIAXone(*) 1 GM in NS 0.9% 50 ML* 50 ML IVPB SCH (23:24)
[2019-07-20] MEDS: Morphine INJ* 2 MG/ML 1 ML SYRINGE (TWO MG - NEW SYRINGE VERSION) IV PRN ×3 (02:54→22:03)
[2019-07-20] MEDS: NS 0.9% 1000 ML** 1,000 ML IV SCH (03:02)
[2019-07-20] MEDS: Azithromycin 500 mg/250 ml NS 500 MG/250 ML BAG IVPB SCH (06:04)
[2019-07-20] MEDS: Heparin VIAL(*) 5000 UNITS/ML VIAL (FIVE THOUSAND) SUBCUT SCH ×3 (06:04→21:58)
[2019-07-20] MEDS: Aspirin 81 mg CHEW TAB* 81 MG TAB.CHEW PO SCH (08:57)
[2019-07-20] MEDS: Carbidopa/Levodop 25/100 MG TAB(*) PO SCH ×3 (08:57→21:58)
[2019-07-20] MEDS: Ferrous Sulfate TAB* 325 MG PO SCH (08:57)
[2019-07-20] MEDS: FLUTICASONE PROPIONATE 55 MCG IH SCH (08:58)
[2019-07-20] MEDS: Lidocaine PATCH 5%* 1 PATCH TRANSDERM SCH (08:58)
[2019-07-20] MEDS: Carbamide Peroxide 6.5% OTIC* 15 ML BTL SCH (09:00)
[2019-07-20 09:39] LABS: ABS Lymphocytes 0.5 10^3/ul (1.0-4.8); ABS Monocytes 0.6 10^3/ul (0-0.8); ABS Neutrophils 3.2 10^3/ul (1.5-7.7); Hematocrit 31 % (42-52); Hemoglobin 10.5 g/dL (14.0-18.0); Lymphocyte % 11.7 %; Mean Corpuscular HGB Conc 34 g/dL (31-36); Mean Corpuscular Hemoglobin 31 pg (27-31); Mean Corpuscular Volume 90 fL (80-94); Mean Platelet Volume 7.7 fL (7.4-10.4); Platelet Count 119 10^3/uL (150-450); Red Blood Count 3.43 10^6 /uL (4.18-5.48); Red Cell Distribution Width 13 % (10-15); White Blood Count 4.3 10^3/uL (3.5-10.8)
[2019-07-20] MEDS: Pantoprazole TAB * 40 MG TAB PO SCH (09:46)
[2019-07-20 09:54] LABS: BUN/Creatinine Ratio 16.7 (8-20); Calcium 8.2 mg/dL (8.6-10.3); EGFR African American 73.5 (>60); EGFR Non-African American 60.8 (>60); Magnesium 1.7 mg/dL (1.9-2.7); Potassium 3.7 mmol/L (3.5-5.0)
--- NOTE | 2019-07-20 11:07 | PN ---
Subjective Date of Service: 07/20/19 Interval History: Pt is found this morning to be more confused than usual per his 's report. He denies feeling "sick" or having any CP or feeling SOB but it is very difficult to get straight answers from him during this time. Family History: Unchanged from Admission Social History: Unchanged from Admission Past Medical History: Unchanged from Admission Objective Active Medications: Acetaminophen (Tylenol Tab*) 650 mg PO Q6H PRN PRN Reason: PAIN - MODERATE Albuterol (Ventolin Hfa Inhaler*) 2 puff INH Q4H PRN PRN Reason: SOB/WHEEZING Aspirin (Aspirin 81 Mg Chew Tab*) 81 mg PO DAILY [facility] Last Admin: 07/20/19 08:57 Dose: Not Given Carbamide Peroxide (Debrox 6.5% Otic*) 1 drop .SEE ORDER DAILY [facility] Last Admin: 07/20/19 09:00 Dose: 1 drop Carbidopa/Levodopa (Sinemet 25/100 Tab(*)) 1 tab PO AC [facility] Last Admin: 07/20/19 08:57 Dose: Not Given Ferrous Sulfate (Ferrous Sulfate Tab*) 325 mg PO DAILY [facility] Last Admin: 07/20/19 08:57 Dose: Not Given Heparin Sodium (Porcine) (Heparin Vial(*)) 5,000 units SUBCUT Q8HR [facility] Last Admin: 07/20/19 06:04 Dose: 5,000 units Ceftriaxone Sodium 1 gm/ (Sodium Chloride) 50 mls @ 100 mls/hr IVPB Q24H [facility] Last Admin: 07/19/19 23:24 Dose: 100 mls/hr Azithromycin (Zithromax 500 Mg/250 Ml) 500 mg in 250 mls @ 250 mls/hr IVPB Q24H [facility] Last Admin: 07/20/19 06:04 Dose: 250 mls/hr Sodium Chloride (Ns 0.9% 1000 Ml) 1,000 mls @ 75 mls/hr IV PER RATE [facility] Last Admin: 07/20/19 03:02 Dose: 75 mls/hr Lidocaine (Lidoderm 5% Patch*) 1 patch TRANSDERM DAILY [facility] Last Admin: 07/20/19 08:58 Dose: 1 patch Melatonin (Melatonin) 3 mg PO ONCE ONE Stop: 07/20/19 21:01 Morphine Sulfate (Morphine Inj (Syringe))*) 1 mg IV Q2H PRN PRN Reason: PAIN - SEVERE Last Admin: 07/20/19 05:00 Dose: 1 mg Nitroglycerin (Nitroglycerin Tab 0.4 Mg*) 0.4 mg SL Q5M PRN PRN Reason: ANGINA NOT RELIEVED w REST Non-Formulary Medication (Fluticasone Propionate [Armonair Respiclick]) 55 mcg IH DAILY [facility] Last Admin: 07/20/19 08:58 Dose: Not Given Pantoprazole Sodium (Protonix Tab*) 20 mg PO DAILY [facility] Last Admin: 07/20/19 09:46 Dose: Not Given Pharmacy Profile Note (Lidocaine Patch Remove*) 1 note N/A 2100 [facility] Last Admin: 07/19/19 20:18 Dose: Not Given Tramadol HCl (Ultram*) 50 mg PO Q8H PRN PRN Reason: PAIN - MODERATE Last Admin: 07/19/19 19:25 Dose: 50 mg Vital Signs - 8 hr 07/20/19 07/20/19 07/20/19 03:57 05:00 06:05 Temperature Pulse Rate Respiratory 20 16 16 Rate Blood Pressure (mmHg) O2 Sat by Pulse Oximetry 07/20/19 07:53 Temperature 98.8 F Pulse Rate 60 Respiratory 19 Rate Blood Pressure 142/48 (mmHg) O2 Sat by Pulse 93 Oximetry Oxygen Devices in Use Now: None Appearance: Found this morning laying in bed, in NAD. Calm. Eyes: No Scleral Icterus Ears/Nose/Mouth/Throat: - - slightly dry mucous membranes Respiratory: Symmetrical Chest Expansion and Respiratory Effort, Clear to Auscultation Cardiovascular: RRR Abdominal: NL Sounds; No Tenderness; No Distention - pt was flexing during palpation but no obvious abnormalities noted Extremities: No Edema Neurological: - - Alert but not oriented, follows some easy commands but not all Nutrition: - - awaiting swallow eval Result Diagrams: 07/20/19 09:21 07/20/19 09:21 Additional Lab and Data: Lab Results 07/18/19 07/18/19 07/18/19 Range/Units 17:33 17:33 17:33 WBC 5.2 (3.5-10.8) 10^3/uL RBC 3.77 L (4.18-5.48) 10^6 /uL Hgb 11.6 L (14.0-18.0) g/dL Hct 34 L (42-52) % MCV 91 (80-94) fL MCH 31 (27-31) pg MCHC 34 (31-36) g/dL RDW 13 (10-15) % Plt Count 125 L (150-450) 10^3/uL MPV 7.6 (7.4-10.4) fL Neut % (Auto) 69.9 % Lymph % (Auto) 13.7 % [place] % (Auto) 10.8 % Eos % (Auto) 4.8 % Baso % (Auto) 0.8 % Absolute Neuts (auto) 3.6 (1.5-7.7) 10^3/ul Absolute Lymphs (auto) 0.7 L (1.0-4.8) 10^3/ul Absolute Monos (auto) 0.6 (0-0.8) 10^3/ul Absolute Eos (auto) 0.2 (0-0.6) 10^3/ul Absolute Basos (auto) 0.0 (0-0.2) 10^3/ul Absolute Nucleated RBC 0.0 10^3/ul Nucleated RBC % 0.1 Sodium 139 (135-145) mmol/L Potassium 4.0 (3.5-5.0) mmol/L Chloride 106 (101-111) mmol/L Carbon Dioxide 25 (22-32) mmol/L Anion Gap 8 (2-11) mmol/L BUN 27 H (6-24) mg/dL Creatinine 1.66 H (0.67-1.17) mg/dL Est GFR ( Amer) 47.7 (>60) Est GFR (Non-Af Amer) 39.4 (>60) BUN/Creatinine Ratio 16.3 (8-20) Glucose 119 H (70-100) mg/dL Lactic Acid 1.4 (0.5-2.0) mmol/L Calcium 8.7 (8.6-10.3) mg/dL Magnesium 1.9 (1.9-2.7) mg/dL Total Bilirubin 0.80 (0.2-1.0) mg/dL AST 18 (13-39) U/L ALT 14 (7-52) U/L Alkaline Phosphatase 50 (34-104) U/L C-Reactive Protein 75.42 H (<8.01) mg/L Total Protein 6.4 (6.4-8.9) g/dL Albumin 3.8 (3.2-5.2) g/dL Globulin 2.6 (2-4) g/dL Albumin/Globulin Ratio 1.5 (1-3) TSH Pending Microbiology and Other Data: Microbiology 07/18/19 17:35 Aerobic Blood Culture - Preliminary Blood Venous No Growth Day 1 Anaerobic Blood Culture - Preliminary No Growth Day 1 07/18/19 17:33 Aerobic Blood Culture - Preliminary Blood Venous No Growth Day 1 Anaerobic Blood Culture - Preliminary No Growth Day 1 Diagnostic Imaging: Chest XRay impression: cardiomegaly COPD patchy airspace disease of R mid lung CT lumbar spine impression: suspected acute mild compression deformity of the inferior endplate of L1 - can be further assessed with MRI CT thoracic spine impression: questionable mild compression deformity of the superior endplate of T3 - can be further assessed with MRI See reports for other findings Assess/Plan/Problems-Billing Assessment: 89 yo male with COPD, HTN, Parkinson's disease, sick sinus syndrome with pacer insertion in 2009. He presented to the ED on 07/18 after having 2 falls at home, feeling fatigued, difficulty swallowing. He was found to have pneumonia per chest CXRay, possible compression fractures of the lumbar and thoracic spine, and was admitted to the medical unit for management per hospital medicine. - Patient Problems (1) CAP (community acquired pneumonia) Current Visit: Yes Status: Acute Code(s): J18.9 - PNEUMONIA, UNSPECIFIED ORGANISM SNOMED Code(s): 127736576 Comment: Noted per chest XRay, had been having falls at home and feeling fatigued. IV azithromycin and ceftriaxone (2) Back pain Current Visit: Yes Status: Acute Code(s): M54.9 - DORSALGIA, UNSPECIFIED SNOMED Code(s): 092880673 Comment: Possible compression fractures per lumar and thoracic spine CT scans. Significant pain with movement in bed. Unable to do MRI d/t pacer Pain control as needed Need PT eval (3) Dysphagia Current Visit: Yes Status: Acute Code(s): R13.10 - DYSPHAGIA, UNSPECIFIED SNOMED Code(s): 51905710 Comment: C/o feeling food getting "stuck" in his throat/esophagus. Has been happening per 's report on and off for about a year now. Upper GI study did not reveal any significant findings, swallow function test suggested Swallow function test tomorrow Speech therapy will do bedside eval today Continue sinemet. (4) Parkinson disease Current Visit: Yes Status: Acute Code(s): G20 - PARKINSON'S DISEASE SNOMED Code(s): 43780464 Comment: home medication of carbidope/levadopa note available in house. Continue immediate release sinimet TID Printed information packet given to family (5) COPD (chronic obstructive pulmonary disease) Current Visit: No Status: Acute Code(s): J44.9 - CHRONIC OBSTRUCTIVE PULMONARY DISEASE, UNSPECIFIED SNOMED Code(s): 53015216 Comment: No signs of exacerbation. No wheezing, no increase shortness of breath or cough. Will resume usual medications (6) AMS (altered mental status) Current Visit: Yes Status: Acute Code(s): R41.82 - ALTERED MENTAL STATUS, UNSPECIFIED SNOMED Code(s): 310385273 Comment: alert but more confused than yesterday. hospital delirium vs pain medication vs lack of sleep. says this is not normal for him. Did become rather agitated this afternoon per nursing staff. - seroquel 25mg PO daily ordered for agitation - melatonin 3mg PO X1 ordered for tonight - pamphlet on hospital delirium given to family (7) Normocytic anemia Current Visit: Yes Status: Acute Code(s): D64.9 - ANEMIA, UNSPECIFIED SNOMED Code(s): 836905745 Comment: .11/21, stable can follow up with PCP (8) DVT prophylaxis Current Visit: No Status: Acute Code(s): XXS7279 - SNOMED Code(s): 797253618 Comment: SQ heparin (9) Full code status Current Visit: No Status: Acute Code(s): Z78.9 - OTHER SPECIFIED HEALTH STATUS SNOMED Code(s): 664206787 Status and Disposition: Disposition: Medical floor Condition: Guarded Attending: Suzanne Sprinegr
[2019-07-20] MEDS ORDERED: QUEtiapine TAB* 25 MG PO ONE (13:07)
[2019-07-20] MEDS ORDERED: Melatonin 3 MG TAB PO ONE (21:00)
[2019-07-20] MEDS: Magnesium Oxide TAB* 400 MG PO SCH (21:45)
[2019-07-20] MEDS: QUEtiapine TAB* 25 MG PO SCH (21:45)
[2019-07-20] MEDS ORDERED: Magnesium Sulfate 2 GM IV* 2 GM/50 ML BAG IVPB ONE (21:46)
[2019-07-20] MEDS: Lidocaine Patch REMOVE* 1 NOTE MISC SCH (21:58)
[2019-07-20] MEDS: cefTRIAXone(*) 1 GM in NS 0.9% 50 ML* 50 ML IVPB SCH (23:42)
[2019-07-21] MEDS: Azithromycin 500 mg/250 ml NS 500 MG/250 ML BAG IVPB SCH (05:34)
[2019-07-21] MEDS: Heparin VIAL(*) 5000 UNITS/ML VIAL (FIVE THOUSAND) SUBCUT SCH ×3 (05:34→22:04)
[2019-07-21 06:38] LABS: ABS Eosinophils 0.2 10^3/ul (0-0.6); ABS Lymphocytes 0.8 10^3/ul (1.0-4.8); ABS Monocytes 0.4 10^3/ul (0-0.8); ABS Neutrophils 2.8 10^3/ul (1.5-7.7); Eosinophil % 5.4 %; Hematocrit 31 % (42-52); Hemoglobin 10.5 g/dL (14.0-18.0); Lymphocyte % 18.2 %; Mean Corpuscular HGB Conc 34 g/dL (31-36); Mean Corpuscular Hemoglobin 31 pg (27-31); Mean Corpuscular Volume 90 fL (80-94); Mean Platelet Volume 7.8 fL (7.4-10.4); Platelet Count 128 10^3/uL (150-450); Red Blood Count 3.42 10^6 /uL (4.18-5.48); Red Cell Distribution Width 13 % (10-15); White Blood Count 4.2 10^3/uL (3.5-10.8)
[2019-07-21 06:53] LABS: Calcium 8.3 mg/dL (8.6-10.3); EGFR African American 72.8 (>60); EGFR Non-African American 60.2 (>60); Magnesium 2.3 mg/dL (1.9-2.7); Potassium 3.7 mmol/L (3.5-5.0)
[2019-07-21] MEDS: Aspirin 81 mg CHEW TAB* 81 MG TAB.CHEW PO SCH ×2 (08:44→08:51)
[2019-07-21] MEDS: Carbidopa/Levodop 25/100 MG TAB(*) PO SCH ×4 (08:44→16:51)
[2019-07-21] MEDS: Magnesium Oxide TAB* 400 MG PO SCH (08:48)
[2019-07-21] MEDS: FLUTICASONE PROPIONATE 55 MCG IH SCH (08:48)
[2019-07-21] MEDS: Ferrous Sulfate TAB* 325 MG PO SCH (08:48)
[2019-07-21] MEDS: Pantoprazole TAB * 40 MG TAB PO SCH (08:48)
[2019-07-21] MEDS: Carbamide Peroxide 6.5% OTIC* 15 ML BTL SCH (08:50)
[2019-07-21] MEDS: Lidocaine PATCH 5%* 1 PATCH TRANSDERM SCH (08:55)
[2019-07-21] MEDS: QUEtiapine TAB* 25 MG PO SCH (16:51)
[2019-07-21] MEDS ORDERED: Melatonin 3 MG TAB PO PRN (19:13)
--- NOTE | 2019-07-21 19:13 | PN ---
Subjective Date of Service: 07/21/19 Interval History: More confused.Occ hallucination per family.not agitated at time of interview.but fam reports increased agitation noted last few days.not eating this am. prev tolerated soft per fam. worsening dysphagia Family History: Unchanged from Admission Social History: Unchanged from Admission Past Medical History: Unchanged from Admission Objective Active Medications: Acetaminophen (Tylenol Tab*) 650 mg PO Q6H PRN PRN Reason: PAIN - MODERATE Albuterol (Ventolin Hfa Inhaler*) 2 puff INH Q4H PRN PRN Reason: SOB/WHEEZING Aspirin (Aspirin 81 Mg Chew Tab*) 81 mg PO DAILY [facility] Last Admin: 07/21/19 08:51 Dose: Not Given Carbamide Peroxide (Debrox 6.5% Otic*) 1 drop .SEE ORDER DAILY [facility] Last Admin: 07/21/19 08:50 Dose: 1 drop Carbidopa/Levodopa (Sinemet 25/100 Tab(*)) 1 tab PO AC [facility] Last Admin: 07/21/19 16:51 Dose: 1 tab Ferrous Sulfate (Ferrous Sulfate Tab*) 325 mg PO DAILY [facility] Last Admin: 07/21/19 08:48 Dose: Not Given Heparin Sodium (Porcine) (Heparin Vial(*)) 5,000 units SUBCUT Q8HR [facility] Last Admin: 07/21/19 14:33 Dose: 5,000 units Ceftriaxone Sodium 1 gm/ (Sodium Chloride) 50 mls @ 100 mls/hr IVPB Q24H [facility] Last Admin: 07/20/19 23:42 Dose: 100 mls/hr Azithromycin (Zithromax 500 Mg/250 Ml) 500 mg in 250 mls @ 250 mls/hr IVPB Q24H [facility] Last Admin: 07/21/19 05:34 Dose: 250 mls/hr Lidocaine (Lidoderm 5% Patch*) 1 patch TRANSDERM DAILY [facility] Last Admin: 07/21/19 08:55 Dose: 1 patch Magnesium Oxide (Magox 400 Tab*) 800 mg PO DAILY [facility] Last Admin: 07/21/19 08:48 Dose: Not Given Morphine Sulfate (Morphine Inj (Syringe))*) 1 mg IV Q2H PRN PRN Reason: PAIN - SEVERE Last Admin: 07/20/19 22:03 Dose: 1 mg Nitroglycerin (Nitroglycerin Tab 0.4 Mg*) 0.4 mg SL Q5M PRN PRN Reason: ANGINA NOT RELIEVED w REST Non-Formulary Medication (Fluticasone Propionate [Armonair Respiclick]) 55 mcg IH DAILY [facility] Last Admin: 07/21/19 08:48 Dose: Not Given Pantoprazole Sodium (Protonix Tab*) 20 mg PO DAILY [facility] Last Admin: 07/21/19 08:48 Dose: Not Given Pharmacy Profile Note (Lidocaine Patch Remove*) 1 note N/A 2100 [facility] Last Admin: 07/20/19 21:58 Dose: 1 note Quetiapine Fumarate (Seroquel Tab*) 25 mg PO QPM [facility] Last Admin: 07/21/19 16:51 Dose: Not Given Tramadol HCl (Ultram*) 50 mg PO Q8H PRN PRN Reason: PAIN - MODERATE Last Admin: 07/19/19 19:25 Dose: 50 mg Vital Signs - 8 hr 07/21/19 15:28 Temperature 98.5 F Pulse Rate 60 Respiratory 18 Rate Blood Pressure 121/49 (mmHg) O2 Sat by Pulse 98 Oximetry Oxygen Devices in Use Now: None Eyes: No Scleral Icterus Ears/Nose/Mouth/Throat: NL Teeth, Lips, Gums Neck: NL Appearance and Movements; NL JVP Respiratory: Symmetrical Chest Expansion and Respiratory Effort, Clear to Auscultation Cardiovascular: NL Sounds; No Murmurs; No JVD Abdominal: NL Sounds; No Tenderness; No Distention Extremities: No Edema Neurological: Alert and Oriented x 3, - - only following some commands Result Diagrams: 07/21/19 06:18 07/21/19 06:18 Additional Lab and Data: Lab Results 07/18/19 07/18/19 07/18/19 Range/Units 17:33 17:33 17:33 WBC 5.2 (3.5-10.8) 10^3/uL RBC 3.77 L (4.18-5.48) 10^6 /uL Hgb 11.6 L (14.0-18.0) g/dL Hct 34 L (42-52) % MCV 91 (80-94) fL MCH 31 (27-31) pg MCHC 34 (31-36) g/dL RDW 13 (10-15) % Plt Count 125 L (150-450) 10^3/uL MPV 7.6 (7.4-10.4) fL Neut % (Auto) 69.9 % Lymph % (Auto) 13.7 % [place] % (Auto) 10.8 % Eos % (Auto) 4.8 % Baso % (Auto) 0.8 % Absolute Neuts (auto) 3.6 (1.5-7.7) 10^3/ul Absolute Lymphs (auto) 0.7 L (1.0-4.8) 10^3/ul Absolute Monos (auto) 0.6 (0-0.8) 10^3/ul Absolute Eos (auto) 0.2 (0-0.6) 10^3/ul Absolute Basos (auto) 0.0 (0-0.2) 10^3/ul Absolute Nucleated RBC 0.0 10^3/ul Nucleated RBC % 0.1 Sodium 139 (135-145) mmol/L Potassium 4.0 (3.5-5.0) mmol/L Chloride 106 (101-111) mmol/L Carbon Dioxide 25 (22-32) mmol/L Anion Gap 8 (2-11) mmol/L BUN 27 H (6-24) mg/dL Creatinine 1.66 H (0.67-1.17) mg/dL Est GFR ( Amer) 47.7 (>60) Est GFR (Non-Af Amer) 39.4 (>60) BUN/Creatinine Ratio 16.3 (8-20) Glucose 119 H (70-100) mg/dL Lactic Acid 1.4 (0.5-2.0) mmol/L Calcium 8.7 (8.6-10.3) mg/dL Magnesium 1.9 (1.9-2.7) mg/dL Total Bilirubin 0.80 (0.2-1.0) mg/dL AST 18 (13-39) U/L ALT 14 (7-52) U/L Alkaline Phosphatase 50 (34-104) U/L C-Reactive Protein 75.42 H (<8.01) mg/L Total Protein 6.4 (6.4-8.9) g/dL Albumin 3.8 (3.2-5.2) g/dL Globulin 2.6 (2-4) g/dL Albumin/Globulin Ratio 1.5 (1-3) TSH Pending Microbiology and Other Data: Microbiology 07/18/19 17:35 Aerobic Blood Culture - Preliminary Blood Venous No Growth Day 1 Anaerobic Blood Culture - Preliminary No Growth Day 1 07/18/19 17:33 Aerobic Blood Culture - Preliminary Blood Venous No Growth Day 1 Anaerobic Blood Culture - Preliminary No Growth Day 1 Diagnostic Imaging: Chest XRay impression: cardiomegaly COPD patchy airspace disease of R mid lung CT lumbar spine impression: suspected acute mild compression deformity of the inferior endplate of L1 - can be further assessed with MRI CT thoracic spine impression: questionable mild compression deformity of the superior endplate of T3 - can be further assessed with MRI See reports for other findings Assess/Plan/Problems-Billing Assessment: 89 yo male with COPD, HTN, Parkinson's disease, sick sinus syndrome with pacer insertion in 2009. He presented to the ED on 07/18 after having 2 falls at home, feeling fatigued, difficulty swallowing. He was found to have pneumonia per chest CXRay, possible compression fractures of the lumbar and thoracic spine, and was admitted to the medical unit for management per hospital medicine. - Patient Problems (1) AMS (altered mental status) Current Visit: Yes Status: Acute Code(s): R41.82 - ALTERED MENTAL STATUS, UNSPECIFIED SNOMED Code(s): 892637523 Comment: alert but more confused than yesterday. hospital delirium vs pain medication vs lack of sleep. says this is not normal for him. Did become rather agitated yesterday - seroquel 25mg PO daily ordered for agitation - melatonin 3mg PO X1 ordered for tonight - pamphlet on hospital delirium given to family (2) Back pain Current Visit: Yes Status: Acute Code(s): M54.9 - DORSALGIA, UNSPECIFIED SNOMED Code(s): 584307316 Comment: Possible compression fractures per lumar and thoracic spine CT scans. Significant pain with movement in bed. Unable to do MRI d/t pacer Pain control as needed Need PT eval (3) CAP (community acquired pneumonia) Current Visit: Yes Status: Acute Code(s): J18.9 - PNEUMONIA, UNSPECIFIED ORGANISM SNOMED Code(s): 292956528 Comment: Noted per chest XRay, had been having falls at home and feeling fatigued. IV azithromycin and ceftriaxone short course (4) Dysphagia Current Visit: Yes Status: Acute Code(s): R13.10 - DYSPHAGIA, UNSPECIFIED SNOMED Code(s): 11401429 Comment: C/o feeling food getting "stuck" in his throat/esophagus. Has been happening per 's report on and off for about a year now. Upper GI study did not reveal any significant findings, swallow function test suggested Swallow function test today Speech therapy will do bedside eval today Continue sinemet. -If worsening,consider GI evaluation (5) Normocytic anemia Current Visit: Yes Status: Acute Code(s): D64.9 - ANEMIA, UNSPECIFIED SNOMED Code(s): 924196331 Comment: , stable can follow up with PCP (6) Parkinson disease Current Visit: Yes Status: Acute Code(s): G20 - PARKINSON'S DISEASE SNOMED Code(s): 32930511 Comment: home dosage of carbidope/levadopa not available in house. Continue immediate release sinimet TID Printed information packet given to family (7) COPD (chronic obstructive pulmonary disease) Current Visit: No Status: Acute Code(s): J44.9 - CHRONIC OBSTRUCTIVE PULMONARY DISEASE, UNSPECIFIED SNOMED Code(s): 28376244 Comment: No signs of exacerbation. No wheezing, no increase shortness of breath or cough. Will resume usual medications (8) DVT prophylaxis Current Visit: No Status: Acute Code(s): RPA5965 - SNOMED Code(s): 733337289 Comment: SQ heparin (9) Full code status Current Visit: No Status: Acute Code(s): Z78.9 - OTHER SPECIFIED HEALTH STATUS SNOMED Code(s): 867674050 Status and Disposition: Disposition: Medical floor Condition: Guarded Will eval swallow and pt/ot and discuss goc further with family.Consider palliative care consult based on progress
[2019-07-21] MEDS: Lidocaine Patch REMOVE* 1 NOTE MISC SCH (20:50)
[2019-07-21] MEDS: cefTRIAXone(*) 1 GM in NS 0.9% 50 ML* 50 ML IVPB SCH (22:02)
[2019-07-22] MEDS: Acetaminophen TAB* 325 MG PO PRN ×2 (02:02→08:19)
[2019-07-22 04:36] LABS: Urine Appearance Clear; Urine Bilirubin Negative (Negative); Urine Blood 1+ (Negative); Urine Color Yellow; Urine Glucose Negative (Negative); Urine Ketones Negative (Negative); Urine Nitrite Negative (Negative); Urine Protein Negative (Negative); Urine Specific Gravity 1.017 (1.010-1.030); Urine Urobilinogen Negative (Negative)
[2019-07-22 04:37] LABS: Urine Bacteria Absent (Absent); Urine Red Blood Cell Trace(0-2/hpf) (Absent); Urine White Blood Cell Trace(0-5/hpf) (Absent)
[2019-07-22] MEDS: Azithromycin 500 mg/250 ml NS 500 MG/250 ML BAG IVPB SCH (04:50)
[2019-07-22] MEDS: Heparin VIAL(*) 5000 UNITS/ML VIAL (FIVE THOUSAND) SUBCUT SCH ×2 (05:38→12:11)
[2019-07-22 06:44] LABS: ABS Eosinophils 0.2 10^3/ul (0-0.6); ABS Lymphocytes 0.6 10^3/ul (1.0-4.8); ABS Monocytes 0.5 10^3/ul (0-0.8); ABS Neutrophils 2.8 10^3/ul (1.5-7.7); Eosinophil % 3.8 %; Hematocrit 29 % (42-52); Hemoglobin 9.9 g/dL (14.0-18.0); Lymphocyte % 14.4 %; Mean Corpuscular HGB Conc 34 g/dL (31-36); Mean Corpuscular Hemoglobin 31 pg (27-31); Mean Corpuscular Volume 89 fL (80-94); Platelet Count 131 10^3/uL (150-450); Red Blood Count 3.22 10^6 /uL (4.18-5.48); Red Cell Distribution Width 13 % (10-15)
[2019-07-22 07:00] LABS: Calcium 8.1 mg/dL (8.6-10.3); EGFR Non-African American 57.8 (>60); Potassium 3.6 mmol/L (3.5-5.0)
[2019-07-22] MEDS: Carbidopa/Levodop 25/100 MG TAB(*) PO SCH ×2 (08:07→12:10)
[2019-07-22] MEDS: Magnesium Oxide TAB* 400 MG PO SCH (08:09)
[2019-07-22] MEDS: Ferrous Sulfate TAB* 325 MG PO SCH (08:10)
[2019-07-22] MEDS: Pantoprazole TAB * 40 MG TAB PO SCH (08:10)
[2019-07-22] MEDS: Lidocaine PATCH 5%* 1 PATCH TRANSDERM SCH (08:11)
[2019-07-22] MEDS: Aspirin 81 mg CHEW TAB* 81 MG TAB.CHEW PO SCH (08:11)
[2019-07-22] MEDS: Carbamide Peroxide 6.5% OTIC* 15 ML BTL SCH (08:23)
[2019-07-22 11:01] VITALS: BP 158/76
--- NOTE | 2019-07-22 21:38 | DS ---
CC: Liliana Girard NP * DISCHARGE SUMMARY: DATE OF ADMISSION: 07/19/19 DATE OF DISCHARGE: 07/22/19 PRIMARY CARE PROVIDER: Liliana Girard NP. ATTENDING PHYSICIAN: Dr. James Villatoro * (dictated by Shaq Erickson NP) PRIMARY DIAGNOSES: 1. Altered mental status. 2. Back pain. 3. Community-acquired pneumonia. 4. Dysphagia. 5. Normocytic anemia. 6. Parkinson disease. 7. Chronic obstructive pulmonary disease. CONSULTATIONS WHILE IN THE HOSPITAL: No consultations. STUDIES WHILE IN THE HOSPITAL: 1. Chest x-ray: Impression: Cardiomegaly. COPD. Patchy airspace disease of right mid lung. 2. Lumbar spine CT: Impression: Suspect acute mild compression deformity of the inferior end-plate of L1. This can be further assessed with MRI. 3. Right shoulder x-ray: Impression: Anterior subluxation of the humerus, osteopenia, osteoarthritis, no acute osseous injury. 4. Thoracic spine CT: Impression: Questionable mild compression deformity of the superior end-plate of T3. This could be further assessed with MRI. 5. Upper GI series: Impression: Limited study as described. No evidence for esophageal narrowing. Consider a swallowing function test with Speech Pathology for further evaluation. DISCHARGE HOME MEDICATIONS: New home medications: 1. Azithromycin 250 mg p.o. daily x1 tab. 2. Cefdinir 300 mg p.o. b.i.d. x3 days. Continued home medications: 1. Terbinafine 15 g topical daily. 2. Omeprazole 20 mg p.o. daily. 3. Nitroglycerin tab 0.4 mg sublingual q.5 minutes p.r.n. 4. Multivitamin 1 cap p.o. daily. 5. Fluticasone propionate 55 mcg inhalations daily. 6. Ferrous sulfate 325 mg p.o. daily. 7. Carbidopa/levodopa 25/100 one tab p.o. daily. 8. Debrox 1 drop daily. 9. Aspirin 81 mg p.o. daily. 10. Albuterol 2 puff inhalation q.4 hours p.r.n. 11. Albuterol nebulizer 2.5 mg inhalation q.6 hours p.r.n. HISTORY OF PRESENT ILLNESS/HOSPITAL COURSE: Mr. Huerta is an 89-year-old male with a past medical history significant for COPD and hypertension, who was brought to the emergency department by his family on 07/18/19 due to back pain, mechanical falls, weakness. Please see history and physical dictated by Dr. Ambriz for further details of the events leading up to this hospitalization, but in short while in the emergency department, the patient was found to have right lung pneumonia and questionable compression fractures. The patient was then admitted to the medical floor. As for the pneumonia, the patient has been treated with azithromycin and ceftriaxone IV while hospitalized and will be discharged on azithromycin and cefdinir to complete antibiotic course for community-acquired pneumonia. As for back pain, the patient had been taking p.o. pain medications and receiving physical therapy. We were unable to obtain MRI given patient's pacer. The patient's hospitalization was further complicated as he did have a bit of confusion while admitted, which we suspect was secondary to delirium and/or pain medication. Today, this confusion has resolved. The patient also complained of having sensation of something getting stuck in his throat; therefore, he had an upper GI series as mentioned above. He also had speech therapy/swallow evaluation and recommendations were made. The patient is stable for discharge today. It should be mentioned that the patient was offered rehab in the form of subacute rehab facility or [facility], but family is refusing. Family reports that they have everything they need at home and has been set up. The patient was also offered in-home physical therapy, which they have refused. The patient's family, specifically and son, are here at the bedside today, reporting the patient is now at his baseline and they feel safe bringing him home. The patient will be discharged home. REVIEW OF SYSTEMS: The patient complaints of mild back pain. A 14-point review of systems was completed and all others were negative. PHYSICAL EXAMINATION: Vital Signs: Temp 97.2, HR 60, RR 15, O2 saturation 97% on room air, BP 158/76. General: The patient is a well-developed, elderly man , sitting in bed, appears to be in no acute distress, appears stated age. HEENT : EOMs intact. Sclerae without icterus. Mucous membranes are moist. Neck: No pain to palpation. No lymphadenopathy. Respiratory: Symmetrical chest expansion. No accessory muscle use. Lungs are clear to auscultation. No rhonchi, wheezes, or rubs. CV: Regular rate and rhythm. S1 and S2 present. No murmurs, rubs, or gallops. Extremities: Skin is warm and smooth bilaterally. No edema. Musculoskeletal: Full range of motion. No pain or deformities. Abdomen: Soft, nontender. Bowel sounds normoactive. Neuro: The patient is awake and alert. He is oriented to self and place. He is at his baseline per family. Motor strength is 5/5 in upper and lower extremities. Skin: Grossly intact. DIAGNOSTIC STUDIES/LABORATORY DATA: WBC 4.0, hemoglobin 9.9, hematocrit 29. Sodium 141, potassium 3.6, chloride 111, carbon dioxide 23, anion gap 7, BUN 25 , creatinine 1.19. DISCHARGE PLAN/FOLLOWUP: Mr. Huerta will be discharged home with the following plan: 1. Altered mental status: As mentioned above, this has resolved. Family reports he is at his baseline. I would recommend continue to monitor patient for changes. Avoid medications that would increase agitation and confusion. 2. Back pain: As mentioned above, possible compression fractures seen on lumbar and sacral spine CT. The patient should follow up with PT as an outpatient if possible. The patient is to follow up with his primary care. The patient should continue Tylenol or ibuprofen for pain. The patient could be referred to senior communications specialist if PCP deems necessary. 3. Community-acquired pneumonia: The patient's fatigue has improved while on antibiotics. In addition, the patient has remained afebrile. The patient should continue antibiotics as mentioned above and follow up with his primary care provider to ensure resolution. 4. Dysphagia: The patient had GI study as mentioned above. He was also evaluated by Speech Pathology. Speech Pathology recommends pureed texture, thin liquids, pills as tolerated. This has been conveyed to the family. 5. Normocytic anemia: The patient should follow up with his primary care provider. It should be mentioned that the patient is near baseline. He is also normocytic. 6. Parkinson disease: The patient is to continue his carbidopa/levodopa. The patient should follow up with Physical Therapy. 7. COPD: The patient is to resume his home medications. 8. Followup: I have encouraged the patient to follow up with his primary care provider in 1 to 3 days. I would recommend primary care provider to repeat a CBC at this time to assess anemia. I have educated family on signs and symptoms of new or worsening condition and when to return to the emergency department. This is a summarized report of a complex medical history and hospital stay. For further details, please see entire medical record. TIME SPENT: Approximately 65 minutes was spent on this discharge, greater than half that time was spent [id number] with patient discussing discharge plans and instructions. SHAQ ERICKSON, JAMMIE [id number]/CPS #: [id number] JEANNE
== END 2019-07-22 17:00 | disposition home or self-care (01) | DRG 194 ==
LOC: ED 17:02 → MED 20:17
PROVIDERS: ADMIT Student in an Organized Health Care Education/Training Program; ATTEND Internal Medicine
DX: J15.9 Unspecified bacterial pneumonia (principal); J44.0 Chronic obstructive pulmonary disease with (acute) lower respiratory infection; M48.56XA Collapsed vertebra, not elsewhere classified, lumbar region, initial encounter for fracture; M48.54XA Collapsed vertebra, not elsewhere classified, thoracic region, initial encounter for fracture; I25.10 Atherosclerotic heart disease of native coronary artery without angina pectoris; E78.00 Pure hypercholesterolemia, unspecified; I10 Essential (primary) hypertension; K21.9 Gastro-esophageal reflux disease without esophagitis; M19.90 Unspecified osteoarthritis, unspecified site; F41.9 Anxiety disorder, unspecified; K58.9 Irritable bowel syndrome, unspecified; G20 Parkinson's disease; I49.5 Sick sinus syndrome; R13.10 Dysphagia, unspecified; D64.9 Anemia, unspecified; T39.95XA Adverse effect of unspecified nonopioid analgesic, antipyretic and antirheumatic, initial encounter; Y92.239 Unspecified place in hospital as the place of occurrence of the external cause; R41.0 Disorientation, unspecified; Z79.82 Long term (current) use of aspirin; I25.2 Old myocardial infarction; Z95.0 Presence of cardiac pacemaker; Z79.51 Long term (current) use of inhaled steroids
CPT/HCPCS: 36415; 71046; 72128; 72131; 74246; 80048; 80053; 81003; 81015; 83605; 83735; 84443; 85025; 85027; 86140; 87040; 87086; 99284; A9270-GY; J0456; J0696; J1644; J2270; J3475

== ENCOUNTER 2019-07-26 14:38 | Emergency (ER) | payer MEDICARE ==
[2019-07-26] MEDS ORDERED: LEVODOP PO ONE (15:55)
[2019-07-26] MEDS ORDERED: CARBIDOPA PO ONE (15:55)
--- NOTE | 2019-07-26 15:57 | ED ---
Complex/Multi-Sys Presentation - HPI Summary HPI Summary: 89 y/o male presented to [facility] with tremors present for days that have worsened over time. He sustained 2 falls 2 weeks ago at home and in a store, and spent 5 days at [facility] for 2 lumbar compression fractures. He has a history of Parkinson's and has not taken his Carbidopa for months, which his family was not aware of until recently. [facility]. The family has been trying to get the medications by calling [facility], but they have been told that a doctor will call them and are waiting on that call. When the patient was at [facility] it was suggested that he stay on the second floor for rehab, but the patient did not want that and has not yet received rehab. He lives on his own and receives help at home. Patient is a level 5 caveat secondary to dementia. - History Of Current Complaint Chief Complaint: EDGeneral Time Seen by Provider: 07/26/19 15:15 Hx Obtained From: Family/Cartographic Technician Onset/Duration: Still Present Timing: Constant Severity Currently: Severe Location: Negative Associated Signs And Symptoms: Positive: Back Pain - lumbar, Other - tremors - Allergies/Home Medications Allergies/Adverse Reactions: Allergies Allergy/AdvReac Type Severity Reaction Status Date / Time No Known Allergies Allergy Verified 07/26/19 15:41 PMH/Surg Hx/FS Hx/Imm Hx Endocrine/Hematology History: Denies: Hx Diabetes Cardiovascular History: Reports: Hx Angina, Hx Coronary Artery Disease, Hx Hypercholesterolemia, Hx Hypertension, Hx Myocardial Infarction, Hx Pacemaker/ ICD, Hx Syncope - [place] 2004, Other Cardiovascular Problems/Disorders - pacemaker Denies: Hx Peripheral Vascular Disease Respiratory History: Reports: Hx Asthma, 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, Other Respiratory Problems/Disorders - EMPHYZEMA GI History: Reports: Hx Gastroesophageal Reflux Disease, Hx Irritable Bowel, Other GI Disorders - appendix surgery x 2 History: Denies: Hx Dialysis Musculoskeletal History: Reports: Hx Arthritis, Hx Back Problems - comes and goes, Other Musculoskeletal History - L arm tendonitis requiring surgeries, bilateral rotator cuff surgeries Denies: Hx Osteoporosis Sensory History: Reports: Hx Contacts or Glasses - READING Denies: Hx Cataracts, Hx Glaucoma, Hx Hearing Aid Opthamlomology History: Reports: Hx Contacts or Glasses - READING Denies: Hx Cataracts, Hx Glaucoma Neurological History: Denies: Hx Dementia, Hx Headaches, Hx Seizures, Hx Transient Ischemic Attacks (TIA) Psychiatric History: Reports: Hx Anxiety - Surgical History Surgery Procedure, Year, and Place: pacemaker 11/2009. forearm tendon repairs bilateral. appy, cholecystectomy. cataract surgery 11/2010 Hx Anesthesia Reactions: No - Immunization History Date of Tetanus Vaccine: Up to date Date of Influenza Vaccine: Fall 2012 Infectious Disease History: No Infectious Disease History: Denies: Traveled Outside the [place] in Last 30 Days - Family History Known Family History: Positive: Hypertension - Social History Alcohol Use: Rare Hx Substance Use: No Substance Use Type: Reports: None Hx Tobacco Use: No Smoking Status (MU): Never Smoked Tobacco - Additional Comments History Additional Comments: Patient is a level 5 caveat secondary to dementia. Review of Systems - ROS Summary Review of Systems Summary: Patient is a level 5 caveat secondary to dementia. Positive: Other - lumbar pain Neurological: Other - tremors Positive: Weakness All Other Systems Reviewed And Are Negative: No Physical Exam - Summary Physical Exam Summary: VITAL SIGNS: Reviewed. GENERAL: Patient is an elderly male who is lying comfortable in the stretcher. Patient is not in any acute respiratory distress. He is unable to give ay history, and most was given by the grandson. HEAD AND FACE: No signs of trauma. No ecchymosis, hematomas or skull depressions. No sinus tenderness. EYES: PERRLA, EOMI x 2, No injected conjunctiva, no nystagmus. EARS: Hearing grossly intact. Ear canals and tympanic membranes are within normal limits. MOUTH: Oropharynx within normal limits. NECK: Supple, trachea is midline, no adenopathy, no JVD, no carotid bruit, no c- spine tenderness, neck with full ROM. CHEST: Symmetric, no tenderness at palpation. LUNGS: Clear to auscultation bilaterally. No wheezing or crackles. CVS: Regular rate and rhythm, S1 and S2 present, no murmurs or gallops appreciated. ABDOMEN: Soft, non-tender. No signs of distention. No rebound, no guarding, and no masses palpated. Bowel sounds are normal. EXTREMITIES: FROM in all major joints, no edema, no cyanosis or clubbing. NEURO: Alert but not oriented. Essential tremors due to Parkinson's SKIN: Dry and warm. Triage Information Reviewed: Yes Vital Signs On Initial Exam: Initial Vitals Temp Pulse Resp BP Pulse Ox 100.5 F 61 14 133/66 97 07/26/19 14:44 07/26/19 14:44 07/26/19 14:44 07/26/19 14:44 07/26/19 14:44 Vital Signs Reviewed: Yes Procedures - Sedation Patient Received Moderate/Deep Sedation with Procedure: No Diagnostics - Vital Signs Vital Signs Temp Pulse Resp BP Pulse Ox 07/26/19 14:44 100.5 F 61 14 133/66 97 - Laboratory Result Diagrams: 07/26/19 15:58 07/26/19 15:58 Lab Statement: Any lab studies that have been ordered have been reviewed, and results considered in the medical decision making process. Re-Evaluation - Re-Evaluation First Eval Re-Evaluation Time: 17:02 Comment: Patient's son wants a prescription sent to [place], and the family will follow up with the patient's primary care physician for rehab. Complex Multi-Symp Course/Dx Assessment/Plan: 89 y/o male presented to [facility] with tremors present for days that have worsened over time. He sustained 2 falls 2 weeks ago at home and in a store, and spent 5 days at [facility] for 2 lumbar compression fractures. He has a history of Parkinson's and has not taken his Carbidopa for months, which his family was not aware of until recently. [facility], [facility]. The family has been trying to get the medications by calling [facility], but they have been told that a doctor will call them and are waiting for that call. When the patient was at [facility] it was suggested that he stay on the second floor for rehab, but the patient did not want that and has not yet received rehab. He lives on his own and receives help at home. Patient is a level 5 caveat secondary to dementia. Blood work without any significant abnormality except for slight chronic anemia, creatinine 1.44, CRP 11.80. In the ED course and the patient was given one tablet Carvidopa-Levidopa ER. I discussed the findings and test results with the patients son who is the caregiver and he will he requests a prescription for Carvidopa-Levidopa ER and he will follow up with the primary care physician. Patients son is comfortable taking him home and he will be helping him at home with his needs.. The patient is hemodynamically stable alert and oriented 3. - Diagnoses Provider Diagnoses: Parkinson disease Discharge ED - Sign-Out/Discharge Documenting (check all that apply): Patient Departure - dc - Discharge Plan Condition: Stable Disposition: HOME Prescriptions: Carbidopa/Levodopa ER 25/100 [Carbidopa-Levo ER 25-100 Tab] 1 tab PO DAILY #30 tablet.er Patient Education Materials: Parkinson Disease (ED) Referrals: Liliana Girard [Primary Care Provider] - Additional Instructions: FOLLOW UP WITH YOUR PRIMARY CARE PROVIDER DISCUSSED. RETURN TO THE ED FOR ANY WORSENING OR NEW SYMPTOMS. - Billing Disposition and Condition Condition: STABLE Disposition: Home - Attestation Statements Document Initiated by Scribe: Yes Documenting Scribe: Dionicio García Provider For Whom Mariano is Documenting (Include Credential): Darshan Chiu MD Scribe Attestation: Dionicio Goldberg, scribed for Darshan Chiu MD on 07/27/19 at 1337. Scribe Documentation Reviewed: Yes Provider Attestation: The documentation as recorded by the Dionicio covington accurately reflects the service I personally performed and the decisions made by Darshan simeon MD Status of Scribe Document: Viewed
[2019-07-26 16:23] LABS: ABS Basophils 0.1 10^3/ul (0-0.2); ABS Eosinophils 0.2 10^3/ul (0-0.6); ABS Lymphocytes 0.9 10^3/ul (1.0-4.8); ABS Monocytes 0.6 10^3/ul (0-0.8); ABS Neutrophils 3.2 10^3/ul (1.5-7.7); Eosinophil % 3.4 %; Hematocrit 33 % (42-52); Hemoglobin 10.8 g/dL (14.0-18.0); Lymphocyte % 18.1 %; Mean Corpuscular HGB Conc 33 g/dL (31-36); Mean Corpuscular Hemoglobin 30 pg (27-31); Mean Corpuscular Volume 91 fL (80-94); Mean Platelet Volume 7.7 fL (7.4-10.4); Platelet Count 237 10^3/uL (150-450); Red Blood Count 3.59 10^6 /uL (4.18-5.48); Red Cell Distribution Width 13 % (10-15); White Blood Count 4.9 10^3/uL (3.5-10.8)
[2019-07-26 16:31] LABS: Albumin 3.6 g/dL (3.2-5.2); Albumin/Globulin Ratio 1.5 (1-3); BUN/Creatinine Ratio 11.8 (8-20); C Reactive Protein 11.8 mg/L (<8.01); Calcium 8.7 mg/dL (8.6-10.3); EGFR African American 56.1 (>60); EGFR Non-African American 46.4 (>60); Globulin 2.4 g/dL (2-4); Potassium 3.7 mmol/L (3.5-5.0); Total Bilirubin 0.5 mg/dL (0.2-1.0)
[2019-07-26] MEDS ORDERED: Carbidopa/Levodop CR 50/200(*) TAB.CR PO ONE (17:00)
[2019-07-26 17:56] VITALS: BP 173/76
== END 2019-07-26 17:55 | disposition home or self-care (01) ==
LOC: ED 14:38
DX: G20 Parkinson's disease (principal); F02.80 Dementia in other diseases classified elsewhere, unspecified severity, without behavioral disturbance, psychotic disturbance, mood disturbance, and anxiety; M54.5 Low back pain; I25.10 Atherosclerotic heart disease of native coronary artery without angina pectoris; I25.2 Old myocardial infarction; I10 Essential (primary) hypertension; J44.9 Chronic obstructive pulmonary disease, unspecified; K21.9 Gastro-esophageal reflux disease without esophagitis; Z95.810 Presence of automatic (implantable) cardiac defibrillator; Z79.82 Long term (current) use of aspirin; Z79.899 Other long term (current) drug therapy
CPT/HCPCS: 36415; 80053; 85025; 86140; 99282; A9270-GY

== ENCOUNTER 2019-08-28 12:53 | Emergency (ER) | payer MEDICARE ==
[2019-08-28 15:07] LABS: ABS Basophils 0.1 10^3/ul (0-0.2); ABS Eosinophils 0.1 10^3/ul (0-0.6); ABS Monocytes 0.4 10^3/ul (0-0.8); ABS Neutrophils 2.5 10^3/ul (1.5-7.7); Eosinophil % 2.4 %; Hematocrit 36 % (42-52); Hemoglobin 12.2 g/dL (14.0-18.0); Lymphocyte % 24.1 %; Mean Corpuscular HGB Conc 34 g/dL (31-36); Mean Corpuscular Hemoglobin 31 pg (27-31); Mean Corpuscular Volume 91 fL (80-94); Mean Platelet Volume 7.6 fL (7.4-10.4); Platelet Count 183 10^3/uL (150-450); Red Blood Count 3.98 10^6 /uL (4.18-5.48); Red Cell Distribution Width 15 % (10-15); White Blood Count 3.9 10^3/uL (3.5-10.8)
--- NOTE | 2019-08-28 15:21 | ED ---
GI/ HPI - HPI Summary HPI Summary: 89 year old M presenting to [facility] with a chief complaint of hematuria and left flank pain since a few days ago. The patient rates the pain 4/10 in severity. Symptoms aggravated by nothing. Symptoms alleviated by nothing. Patient's visitor denies the patient having any vomiting. Per his visitor the patient was in the hospital a few weeks ago and complained of back pain which had resolved. The patient has a history of an appendectomy and a pacemaker. Medication list reviewed. Allergy list reviewed. Home Medications Medication Instructions Recorded Confirmed Type Albuterol 2.5MG/3ML (0.083%)* 2.5 mg INH Q6H PRN 07/18/19 07/18/19 History [Ventolin 2.5 MG/3 ML NEB.NINOSKA*] Albuterol HFA INHALER* [Ventolin 2 puff INH Q4H PRN 07/18/19 07/18/19 History HFA Inhaler*] Aspirin 81 mg CHEW TAB* 81 mg PO DAILY 07/18/19 07/18/19 History Carbamide Peroxide 6.5% OTIC* 1 drop .SEE ORDER DAILY 07/18/19 07/18/19 History [DEBROX 6.5% Otic*] Ferrous Sulfate TAB* 325 mg PO DAILY 07/18/19 07/18/19 History Fluticasone Propionate [Armonair 55 mcg IH DAILY 07/18/19 07/18/19 History Respiclick] Multivitamin [Multivitamins] 1 cap PO DAILY 07/18/19 07/18/19 History Nitroglycerin TAB 0.4 MG* 0.4 mg SL Q5M PRN 07/18/19 07/18/19 History Omeprazole 20 mg PO DAILY 07/18/19 07/18/19 History Terbinafine HCl [Antifungal] 15 gm TP DAILY 07/18/19 07/18/19 History Azithromycin TAB* [Zithromax TAB 250 mg PO DAILY #1 tab 07/22/19 Rx (Z-PROMISE) 250 mg #6 tabs] Cefdinir [Cefdinir 300 MG CAP] 300 mg PO BID #6 cap 07/22/19 Rx Carbidopa/Levodopa ER 25/100 1 tab PO DAILY #30 tablet.er 07/26/19 Rx [Carbidopa-Levo ER 25-100 Tab] - History of Current Complaint Chief Complaint: EDFlankPain Time Seen by Provider: 08/28/19 15:13 Stated Complaint: ABD PAIN Hx Obtained From: Family/Student Accounts Manager Onset/Duration: Started Days Ago Timing: Constant Severity: Moderate Current Severity: Moderate Pain Intensity: 4 Location of Pain: Other - Left flank Associated Signs and Symptoms: Positive: Hematuria, Flank Pain. Negative: Vomiting Aggravating Factor(s): Nothing Alleviating Factor(s): Nothing - Additional Pertinent History Primary Care Physician: EFRAIN - Allergy/Home Medications Allergies/Adverse Reactions: Allergies Allergy/AdvReac Type Severity Reaction Status Date / Time No Known Allergies Allergy Verified 08/28/19 13:00 Home Medications: Home Medications Albuterol 2.5MG/3ML (0.083%)* [Ventolin 2.5 MG/3 ML NEB.NINOSKA*] 2.5 mg INH Q6H PRN 07/18/19 [History Confirmed 08/28/19] Albuterol HFA INHALER* [Ventolin HFA Inhaler*] 2 puff INH Q4H PRN 07/18/19 [ History Confirmed 08/28/19] Aspirin 81 mg CHEW TAB* 81 mg PO DAILY 07/18/19 [History Confirmed 08/28/19] Carbamide Peroxide 6.5% OTIC* [DEBROX 6.5% Otic*] 1 drop .SEE ORDER DAILY [History Confirmed 08/28/19] Ferrous Sulfate TAB* 325 mg PO DAILY 07/18/19 [History Confirmed 08/28/19] Fluticasone Propionate [Armonair Respiclick] 55 mcg IH DAILY 07/18/19 [History Confirmed 08/28/19] Multivitamin [Multivitamins] 1 cap PO DAILY 07/18/19 [History Confirmed 08/28/19 ] Nitroglycerin TAB 0.4 MG* 0.4 mg SL Q5M PRN 07/18/19 [History Confirmed 08/28/19 ] Omeprazole 20 mg PO DAILY 07/18/19 [History Confirmed 08/28/19] Terbinafine HCl [Antifungal] 15 gm TP DAILY 07/18/19 [History Confirmed 08/28/19 ] Carbidopa/Levodopa ER 25/100 [Carbidopa-Levo ER 25-100 Tab] 1 tab PO DAILY #30 tablet.er 07/26/19 [Rx Confirmed 08/28/19] PMH/Surg Hx/FS Hx/Imm Hx Endocrine/Hematology History: Denies: Hx Diabetes Cardiovascular History: Reports: Hx Angina, Hx Coronary Artery Disease, Hx Hypercholesterolemia, Hx Hypertension, Hx Myocardial Infarction, Hx Pacemaker/ ICD, Hx Syncope - [place] 2004, Other Cardiovascular Problems/Disorders - pacemaker Denies: Hx Peripheral Vascular Disease Respiratory History: Reports: Hx Asthma, 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, Other Respiratory Problems/Disorders - EMPHYZEMA GI History: Reports: Hx Gastroesophageal Reflux Disease, Hx Irritable Bowel, Other GI Disorders - appendix surgery x 2 History: Denies: Hx Dialysis Musculoskeletal History: Reports: Hx Arthritis, Hx Back Problems - comes and goes, Other Musculoskeletal History - L arm tendonitis requiring surgeries, bilateral rotator cuff surgeries Denies: Hx Osteoporosis Sensory History: Reports: Hx Contacts or Glasses - READING Denies: Hx Cataracts, Hx Glaucoma, Hx Hearing Aid Opthamlomology History: Reports: Hx Contacts or Glasses - READING Denies: Hx Cataracts, Hx Glaucoma Neurological History: Denies: Hx Dementia, Hx Headaches, Hx Seizures, Hx Transient Ischemic Attacks (TIA) Psychiatric History: Reports: Hx Anxiety - Surgical History Surgery Procedure, Year, and Place: pacemaker 11/2009. forearm tendon repairs bilateral. appy, cholecystectomy. cataract surgery 11/2010 Hx Anesthesia Reactions: No - Immunization History Date of Tetanus Vaccine: Up to date Date of Influenza Vaccine: Fall 2012 Infectious Disease History: No Infectious Disease History: Denies: Traveled Outside the [place] in Last 30 Days - Family History Known Family History: Positive: Hypertension - Social History Alcohol Use: Rare Hx Substance Use: No Substance Use Type: Reports: None Hx Tobacco Use: No Smoking Status (MU): Never Smoked Tobacco Review of Systems Negative: Vomiting Positive: hematuria Positive: Other - Left flank pain All Other Systems Reviewed And Are Negative: Yes Physical Exam - Summary Physical Exam Summary: Constitutional: Well-developed, Well-nourished, Alert. (-) Distressed Skin: Warm, Dry HENT: Normocephalic; Atraumatic Eyes: Conjunctiva normal Neck: Musculoskeletal ROM normal neck. (-) JVD, (-) Stridor, (-) Tracheal deviation Cardio: Rhythm regular, rate normal, Heart sounds normal; Intact distal pulses; The pedal pulses are 2+ and symmetric. Radial pulses are 2+ and symmetric. (-) Murmur Pulmonary/Chest wall: Effort normal. (-) Respiratory distress, (-) Wheezes, (-) Rales Abd: Soft, (-) tenderness, (-) Distension, (-) Guarding, (-) Rebound Musculoskeletal: (-) Edema; left flank tenderness. Lymph: (-) Cervical adenopathy Neuro: Alert, Oriented x3 Psych: Mood and affect Normal Triage Information Reviewed: Yes Vital Signs On Initial Exam: Initial Vitals Temp Pulse Resp BP Pulse Ox 97.9 F 65 16 121/59 99 08/28/19 12:55 08/28/19 12:55 08/28/19 12:55 08/28/19 12:55 08/28/19 12:55 Vital Signs Reviewed: Yes Procedures - Sedation Patient Received Moderate/Deep Sedation with Procedure: No Diagnostics - Vital Signs Vital Signs Temp Pulse Resp BP Pulse Ox 08/28/19 12:55 97.9 F 65 16 121/59 99 - Laboratory Lab Results: Lab Results 08/28/19 Range/Units 14:58 WBC 3.9 (3.5-10.8) 10^3/uL RBC 3.98 L (4.18-5.48) 10^6 /uL Hgb 12.2 L (14.0-18.0) g/dL Hct 36 L (42-52) % MCV 91 (80-94) fL MCH 31 (27-31) pg MCHC 34 (31-36) g/dL RDW 15 (10-15) % Plt Count 183 (150-450) 10^3/uL MPV 7.6 (7.4-10.4) fL Neut % (Auto) 62.9 % Lymph % (Auto) 24.1 % Cannon % (Auto) 9.2 % Eos % (Auto) 2.4 % Baso % (Auto) 1.4 % Absolute Neuts (auto) 2.5 (1.5-7.7) 10^3/ul Absolute Lymphs (auto) 1.0 (1.0-4.8) 10^3/ul Absolute Monos (auto) 0.4 (0-0.8) 10^3/ul Absolute Eos (auto) 0.1 (0-0.6) 10^3/ul Absolute Basos (auto) 0.1 (0-0.2) 10^3/ul Absolute Nucleated RBC 0.0 10^3/ul Nucleated RBC % 0.0 Result Diagrams: 08/28/19 14:58 08/28/19 14:58 Lab Statement: Any lab studies that have been ordered have been reviewed, and results considered in the medical decision making process. - CT Abdomen/pelvis CT CT Interpretation Completed By: Radiologist Summary of CT Findings: 1. LIMITED STUDY. 2. NO HYDRONEPHROSIS OR NEPHROLITHIASIS. ED physician has reviewed this report. GIGU Course/Dx - Course Course Of Treatment: 89 year old M presenting to [facility] with a chief complaint of hematuria and left flank pain since a few days ago. Physical exam findings: left flank tenderness. Abdomen/pelvis CT reveals, per radiologist, 1. LIMITED STUDY. 2. NO HYDRONEPHROSIS OR NEPHROLITHIASIS. Laboratory results with no significant abnormalities except for an RBC of 3.98, Hgb of 12.2, Hct of 36, creatinine of 1.27, glucose of 151, total protein of 5.5, and urine ketones of trace A. In the ED course, the patient was given normal saline. Patient will be discharged with follow up from his PCP. The patient is agreeable with this plan. - Diagnoses Provider Diagnoses: Flank pain Discharge ED - Sign-Out/Discharge Documenting (check all that apply): Patient Departure - Discharge Plan Condition: Stable Disposition: HOME Patient Education Materials: Flank Pain (ED) Referrals: Liliana Girard [Primary Care Provider] - 08/31/19 Additional Instructions: Follow-up with your PCP on August 31, 2019. Return to the emergency department for changing or worsening symptoms. - Billing Disposition and Condition Condition: STABLE Disposition: Home - Attestation Statements Document Initiated by Tessaibelen: Yes Documenting Scribe: Nayana Le Provider For Whom Scribelen is Documenting (Include Credential): Colby Dougherty DO Scribe Attestation: Nayana Goldberg scribed for Colby Dougherty DO on 08/28/19 at 1942. Scribe Documentation Reviewed: Yes Provider Attestation: The documentation as recorded by the Nayana covington accurately reflects the service I personally performed and the decisions made by me, Christopher R. Scianna, DO Status of Scribe Document: Viewed
[2019-08-28] MEDS ORDERED: NS 0.9% 1000 ML** 1,000 ML IV ONE ×2 (15:25→16:22)
[2019-08-28 15:29] LABS: ALT 13 U/L (7-52); AST 24 U/L (13-39); Albumin 3.4 g/dL (3.2-5.2); Albumin/Globulin Ratio 1.6 (1-3); Alkaline Phosphatase 85 U/L (34-104); Anion Gap 4 mmol/L (2-11); BUN/Creatinine Ratio 13.4 (8-20); Blood Urea Nitrogen 17 mg/dL (6-24); C Reactive Protein < 1.00 mg/L (<8.01); CO2 Carbon Dioxide 29 mmol/L (22-32); Calcium 8.6 mg/dL (8.6-10.3); Chloride 108 mmol/L (101-111); EGFR African American 64.9 (>60); EGFR Non-African American 53.6 (>60); Globulin 2.1 g/dL (2-4); Glucose 151 mg/dL (70-100); Potassium 3.7 mmol/L (3.5-5.0); Sodium 141 mmol/L (135-145); Total Protein 5.5 g/dL (6.4-8.9)
[2019-08-28 18:11] LABS: Urine Appearance Clear; Urine Bilirubin Negative (Negative); Urine Blood Negative (Negative); Urine Color Yellow; Urine Glucose Negative (Negative); Urine Ketones Trace (Negative); Urine Nitrite Negative (Negative); Urine Protein Negative (Negative); Urine Specific Gravity 1.018 (1.010-1.030); Urine Urobilinogen Negative (Negative)
[2019-08-28 19:05] VITALS: BP 128/64
== END 2019-08-28 19:04 | disposition home or self-care (01) ==
LOC: ED 12:53
DX: M54.9 Dorsalgia, unspecified (principal); R31.9 Hematuria, unspecified; I70.0 Atherosclerosis of aorta; K57.30 Diverticulosis of large intestine without perforation or abscess without bleeding; I10 Essential (primary) hypertension; J44.9 Chronic obstructive pulmonary disease, unspecified; K21.9 Gastro-esophageal reflux disease without esophagitis; Z79.51 Long term (current) use of inhaled steroids; Z90.89 Acquired absence of other organs; Z95.810 Presence of automatic (implantable) cardiac defibrillator
CPT/HCPCS: 36415; 74176; 80053; 81003; 83605; 83690; 85025; 86140; 96360; 99282

== ENCOUNTER 2019-10-23 10:50 | Inpatient (IN) ==
[2019-10-23] MEDS ORDERED: NS 0.9% 500 ml BAG 500 ML IV ONE (11:05)
[2019-10-23] MEDS ORDERED: Albuterol 2.5mg/3 ml (0.083%) NEB.SOLN INH PRN (19:23)
[2019-10-23] MEDS: CMC:Carbidopa/Levodopa ODT (NF) 25/100 ODT PO SCH ×2 (20:47→22:35)
[2019-10-23 21:10] LABS: Urine Appearance Clear; Urine Color Yellow; Urine Ketones Trace (Negative); Urine Specific Gravity 1.019 (1.010-1.030); Urine Urobilinogen Negative (Negative)
[2019-10-23 21:11] LABS: Urine Bilirubin Negative (Negative); Urine Blood Negative (Negative); Urine Glucose Negative (Negative); Urine Nitrite Negative (Negative); Urine Protein Negative (Negative)
[2019-10-23 21:13] LABS: Hematocrit 39 % (42-52); Hemoglobin 12.8 g/dL (14.0-18.0); Mean Corpuscular Volume 91 fL (80-94); Red Blood Count 4.22 10^6 /uL (4.18-5.48); White Blood Count 3.8 10^3/uL (3.5-10.8)
[2019-10-23 21:14] LABS: ABS Eosinophils 0.1 10^3/ul (0-0.6); ABS Lymphocytes 0.9 10^3/ul (1.0-4.8); ABS Monocytes 0.3 10^3/ul (0-0.8); Mean Corpuscular HGB Conc 33 g/dL (31-36); Mean Corpuscular Hemoglobin 30 pg (27-31); Mean Platelet Volume 8.8 fL (7.4-10.4); Platelet Count 123 10^3/uL (150-450); Red Cell Distribution Width 14 % (10-15)
[2019-10-23 21:15] LABS: Eosinophil % 1.8 %; Lymphocyte % 23.5 %
[2019-10-23 21:18] LABS: Troponin I 0.07 ng/mL (<0.03)
[2019-10-23 21:19] LABS: Anion Gap 7 mmol/L (2-11); BUN/Creatinine Ratio 22.4 (8-20); Blood Urea Nitrogen 30 mg/dL (6-24); CO2 Carbon Dioxide 28 mmol/L (22-32); Calcium 8.5 mg/dL (8.6-10.3); Chloride 108 mmol/L (101-111); EGFR Non-African American 50.4 (>60); Glucose 78 mg/dL (70-100); Sodium 143 mmol/L (135-145)
[2019-10-23 21:20] LABS: ALT 3 U/L (7-52); Albumin 3.3 g/dL (3.2-5.2); Albumin/Globulin Ratio 1.3 (1-3); Alkaline Phosphatase 61 U/L (34-104); Globulin 2.5 g/dL (2-4); INR 1.01 (0.82-1.09); Total Protein 5.8 g/dL (6.4-8.9)
[2019-10-23 21:21] LABS: Activated Partial Thrombo Time 16.6 seconds (26.0-38.0)
[2019-10-23] MEDS: Heparin 5000 UNITS/ML VIAL(*) 1 ml vial SUBCUT SCH (22:34)
[2019-10-23] MEDS: Mometasone 220 MCG MDI INH SCH (22:37)
[2019-10-24] MEDS: NS 0.9% 1000 ml BAG 1,000 ML IV SCH ×2 (03:13→16:48)
[2019-10-24] MEDS: Heparin 5000 UNITS/ML VIAL(*) 1 ml vial SUBCUT SCH ×3 (05:11→21:46)
[2019-10-24] MEDS: Mometasone 220 MCG MDI INH SCH ×2 (07:54→19:28)
[2019-10-24] MEDS: Carbamide Peroxide 6.5% OTIC 15 ML BTL BOTH EARS SCH (09:24)
[2019-10-24] MEDS: CMC:Carbidopa/Levodopa ODT (NF) 25/100 ODT PO SCH ×3 (09:25→21:44)
[2019-10-24 09:55] LABS: Hematocrit 37 % (42-52); Hemoglobin 12.4 g/dL (14.0-18.0); Mean Corpuscular HGB Conc 33 g/dL (31-36); Mean Corpuscular Hemoglobin 31 pg (27-31); Mean Corpuscular Volume 92 fL (80-94); Mean Platelet Volume 8.3 fL (7.4-10.4); Platelet Count 142 10^3/uL (150-450); Red Blood Count 4.04 10^6 /uL (4.18-5.48); Red Cell Distribution Width 15 % (10-15)
[2019-10-24 10:09] LABS: BUN/Creatinine Ratio 25.4 (8-20); Blood Urea Nitrogen 29 mg/dL (6-24); CO2 Carbon Dioxide 25 mmol/L (22-32); EGFR African American 73.5 (>60); EGFR Non-African American 60.8 (>60); Glucose 66 mg/dL (70-100); Potassium 3.7 mmol/L (3.5-5.0); Sodium 145 mmol/L (135-145)
[2019-10-24 10:10] LABS: Anion Gap 8 mmol/L (2-11); Chloride 112 mmol/L (101-111)
[2019-10-24 10:15] LABS: Troponin I 0.07 ng/mL (<0.03)
[2019-10-25] MEDS: Heparin 5000 UNITS/ML VIAL(*) 1 ml vial SUBCUT SCH (05:40)
[2019-10-25] MEDS: NS 0.9% 1000 ml BAG 1,000 ML IV SCH (06:57)
[2019-10-25 07:44] VITALS: BP 151/72
[2019-10-25] MEDS: Carbamide Peroxide 6.5% OTIC 15 ML BTL BOTH EARS SCH (08:28)
[2019-10-25] MEDS: CMC:Carbidopa/Levodopa ODT (NF) 25/100 ODT PO SCH (08:28)
[2019-10-25] MEDS: Mometasone 220 MCG MDI INH SCH (08:29)
== END 2019-10-25 11:35 | disposition hospice, home (50) | DRG 57 ==
LOC: ED 17:14 → SSU 20:41
PROVIDERS: ADMIT Hospitalist; ATTEND Internal Medicine